=== PATIENT | male | born 1965 | race Caucasian/White ===

== ENCOUNTER 2018-10-19 20:57 | Inpatient (IN) ==
[2018-10-19] MEDS ORDERED: FUROSEMIDE 40 MG/4 ML VIAL IV STA (21:48)
--- NOTE | 2018-10-19 22:14 | XRay Report ---
XR chest 1V portable CLINICAL HISTORY: Dyspnea COMPARISON STUDY: No previous studies for comparison. FINDINGS: Note is made of moderate enlargement of the cardiac silhouette without evidence for pulmona ry edema. Abnormal opacity within the right lower hemithorax likely reflects a pleural effusion with associated airspace opacity. There may also be elevation of the right hemidiaphragm. There is no pneu mothorax. Skinfold projects over the right hemithorax. There is no left pleural effusion. IMPRESSION: 1. Right lower hemithorax opacity which suggests a small to moderate right pleural effusion with airs pace opacity which favors atelectasis although consolidation could appear similar. Possible elevation of the right hemidiaphragm. Radiographic follow-up is recommended. 2. Moderate cardiomegaly without evidence for pulmonary edema. Electronically signed by: Torin Mclaughlin M.D. 10/19/2018 10:13 PM
[2018-10-19 22:28] LABS: Basophils # (auto) 0.04 K/uL (0-0.2); Basophils % (auto) 0.6 %; Eosinophils # (auto) 0.12 K/uL (0-0.5); Eosinophils % (auto) 1.7 %; Hemoglobin 15.2 g/dL (14.0-18.0); Immature Granulocytes # (auto) 0.01 K/uL (0.00-0.02); Immature Granulocytes % (auto) 0.1 %; Lymphocytes # (auto) 1.35 K/uL (1.2-3.4); Lymphocytes % (auto) 19.3 %; Mean Corpuscular Hgb Conc 33.8 g/dL (32-36); Mean Corpuscular Volume 89.1 fL (80-100); Mean Platelet Volume 9.9 fL (7.4-10.4); Monocytes # (auto) 0.62 K/uL (0.11-0.59); Monocytes % (auto) 8.8 %; Neutrophils # (auto) 4.87 K/uL (1.4-6.5); Neutrophils % (auto) 69.5 %; Platelet Count 191 K/uL (130-400); RDW Coefficient of Variation 14.1 % (11.5-14.5); RDW Standard Deviation 45.6 fL (36.4-46.3); Red Blood Count 5.05 M/uL (4.7-6.1); White Blood Count 7.01 K/uL (4.8-10.8)
[2018-10-19 22:53] LABS: Albumin Level 2.8 gm/dl (3.4-5.0); BUN Creatinine Ratio 12.6 (10-20); Calcium 9.4 mg/dl (8.5-10.1); Creatinine Clr Calc Pharmacy 99.8 ml/min; Est GFR (African American) 74.6; Est GFR (Non-African American) 64.4; Magnesium 1.8 mg/dl (1.8-2.4); Potassium 4.3 mmol/L (3.5-5.1)
[2018-10-19 22:56] LABS: Albumin Globulin Ratio 0.7 (0.9-2); Bilirubin,Total 0.8 mg/dl (0.2-1); Globulin 3.9 gm/dl (2.5-4.0); Total Protein 6.7 gm/dl (6.4-8.2)
[2018-10-19 22:58] LABS: INR 1.3 (0.9-1.1); Partial Thromboplastin Ratio 0.9; Partial Thromboplastin Time 24.6 Seconds (21.0-31.0); Prothrombin Time 13.2 Seconds (9.0-12.0)
[2018-10-19 22:58] LABS: Appearance Urine Clear (Clear); Bilirubin Urine Negative (Negative); Blood Urine Negative (Negative); Color Urine Yellow; Glucose Urine UA Negative (Negative); Ketones Urine Negative (Negative); Leukocyte Esterase Urine Negative (Negative); Nitrite Urine Negative (Negative); Protein Urine Trace (Negative); Specific Gravity Urine 1.011 (1.000-1.030); Urobilinogen Urine Negative (Negative)
--- NOTE | 2018-10-19 22:58 | Ultrasound Report ---
BILATERAL LOWER EXTREMITY VENOUS DOPPLER CLINICAL HISTORY: Dyspnea, BLE edema COMPARISON STUDY: No previous studies for comparison. TECHNIQUE: Sonography of the deep venous system of the bilateral lower extremities was performed. Co mpression and augmentation were evaluated. FINDINGS: The bilateral common femoral, superficial femoral and popliteal veins were compressible. A ugmentation was normal. Flow was shown within the deep calf vessels. Lower extremity edema was noted. IMPRESSION: No evidence of deep venous thrombus within the bilateral lower extremities. Electronically signed by: Torin Mclaughlin M.D. 10/19/2018 10:56 PM
[2018-10-19 23:20] LABS: Bacteria Urine Negative (Negative); Epithelial Cell Urine 0-5 /lpf (0-5); RBC Urine 0-4 /hpf (0-4); WBC Urine 0-5 /hpf (0-5)
[2018-10-20] MEDS ORDERED: LABETALOL HCL IV 5 MG/ML 20ML IV STA (00:06)
--- NOTE | 2018-10-20 00:53 | Emergency Department Note ---
Entered by Toyin Lincoln acting as a scribe for History of Present Illness General Chief complaint: Respiratory Problems Stated complaint: CAN'T BREATH, FLUID OVER BAD Source: patient History of Present Illness Onset (ago): day(s) (recently) Location: chest Pain Consistency: + other (persistent) Maximum Pain Intensity: 4 Quality: + other (shortness of breath) Associated symptoms: + cough (productive) and + other (positive fluid buildup ) The patient is a 53 year old male who presents to the Emergency Room with complaints of persistent shortness of breath that began recently. The patient states that he has had a productive cough during this time. He states that he has had fluid buildup that began 3 months prior to arrival. The patient states that he has been taking 20 mg of oral Lasix. Recently his PCP increase the Lasix to 40 mg daily which has helped the fluid buildup, however the patient complains of shortness of breath that persists. Patient's states he sleeps sitting upright in a chair. He denies any fevers, vomiting or diarrhea. 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 Home Medications Home Medications Medication Instructions Recorded Confirmed Type cholecalciferol (vitamin D3) 400 unit PO DAILY 10/19/18 10/19/18 History [Vitamin D3] furosemide [Lasix] 40 mg PO DAILY 10/19/18 10/19/18 History glipizide 10 mg PO DAILY 10/19/18 10/19/18 History lisinopril 20 mg PO DAILY 10/19/18 10/19/18 History metformin 1,000 mg PO DAILY 10/19/18 10/19/18 History potassium aminobenzoate 500 mg PO DAILY 10/19/18 10/19/18 History simethicone [Gas-X Ultra-Strength] 180 mg PO DAILY PRN 10/19/18 10/19/18 History Allergies Allergy/AdvReac Type Severity Reaction Status Date / Time No Known Allergies Allergy Unverified 10/19/18 21:38 Past Med/Surg History Medical History Diabetes (Chronic) Social History Preferred Language: Ukrainian Feels Safe at Home: Yes Smoking Status: Never smoker Review of Systems See HPI for pertinent positives & negatives. and A total of 10 systems reviewed and were otherwise negative Physical Exam Vital Signs Vital Signs - 24 hr 10/19/18 21:07 10/19/18 22:27 10/19/18 23:57 Temperature 37.4 C Temperature Source Oral Sepsis Recent Fever Within 48 Hours No Sepsis New/Unexplained Change in Mental Status No Sepsis Action Taken by Nursing No Action Required Pulse Rate 114 H Pulse Rate [Right Finger] 113 H 116 H Pulse Rhythm Regular Pulse Strength Normal Respiratory Rate 24 26 H 25 H Respiratory Effort / Characteristics Non-Labored Spontaneous Non-Labored Spontaneous Respiratory Depth Normal Normal Respiratory Pattern Regular Regular Blood Pressure 132/92 Blood Pressure [Right Arm] 141/94 H 161/111 H Blood Pressure Mean 105 Blood Pressure Mean [Right Arm] 109 127 Blood Pressure Position Sitting Blood Pressure Position [Right Arm] Sitting Sitting Pulse Oximetry 96 98 95 Oxygen Delivery Method Room Air Room Air 10/20/18 00:00 10/20/18 00:20 10/20/18 00:30 Temperature Temperature Source Sepsis Recent Fever Within 48 Hours Sepsis New/Unexplained Change in Mental Status Sepsis Action Taken by Nursing Pulse Rate 113 H 110 H 110 H Pulse Rate [Right Finger] Pulse Rhythm Pulse Strength Respiratory Rate 25 H 28 H 39 H Respiratory Effort / Characteristics Respiratory Depth Respiratory Pattern Blood Pressure 153/102 H 160/100 H Blood Pressure [Right Arm] Blood Pressure Mean 119 120 Blood Pressure Mean [Right Arm] Blood Pressure Position Blood Pressure Position [Right Arm] Pulse Oximetry Oxygen Delivery Method 10/20/18 00:31 Temperature Temperature Source Sepsis Recent Fever Within 48 Hours Sepsis New/Unexplained Change in Mental Status Sepsis Action Taken by Nursing Pulse Rate 109 H Pulse Rate [Right Finger] Pulse Rhythm Pulse Strength Respiratory Rate 38 H Respiratory Effort / Characteristics Respiratory Depth Respiratory Pattern Blood Pressure 141/105 H Blood Pressure [Right Arm] Blood Pressure Mean 117 Blood Pressure Mean [Right Arm] Blood Pressure Position Blood Pressure Position [Right Arm] Pulse Oximetry Oxygen Delivery Method Vital signs reviewed. Tachycardic and hypertensive General: Chronically ill-appearing 53-year-old male, in no significant distress. Morbidly obese. HEENT: No scleral icterus, PERRLA, neck supple. Atraumatic. Cardiovascular: Tachycardic but regular, no extra sounds. Pulmonary: Clear to auscultation bilaterally, normal work of breathing. Abdomen: Soft, nontender, nondistended, positive bowel sounds. Musculoskeletal: Atraumatic. 2+ pitting edema to the bilateral lower ex tremities. Edema noted to the lower abdominal pannus and buttocks. Neurologic: Patient awake alert and oriented x 3 Skin: Warm, dry, no rash Course 2145: The patient was evaluated in room A3, and a complete history and physical examination were performed. 2358: I reevaluated the patient and updated him on the results. 0008: [facility] for further evaluation. Consultations Consultation #1: I [facility] patient for further evaluation. Time: 00:08 Administered Medications Discontinued Medications Furosemide (Lasix) 40 mg IV NOW STA Stop: 10/19/18 21:49 Last Admin: 10/19/18 22:05 Dose: 40 mg Documented by: [id number] Labetalol HCl (Normodyne) 10 mg IV NOW STA Stop: 10/20/18 00:07 Last Admin: 10/20/18 00:16 Dose: 10 mg Documented by: [id number] Cosigned by: [id number] Medical Decision Making Differential Diagnosis Differential diagnosis: Etiologies such as infections, reactive airway disease, pneumonia, pneumothorax, COPD, CHF, cardiac ischemia, pulmonary embolism, musculoskeletal, gastrointestinal, as well as others were entertained. Medical Records Attestation: I reviewed the patient's medical records. Home Medications Current Medication List: was personally reviewed by me Laboratory Data Attestation: I reviewed the patient's lab results. Result diagrams: 10/19/18 22:20 10/19/18 22:20 Lab Results 10/19/18 10/19/18 10/19/18 Range/Units 22:03 22:20 22:20 WBC 7.01 (4.8-10.8) K/uL RBC 5.05 (4.7-6.1) M/uL Hgb 15.2 (14.0-18.0) g/dL Hct 45.0 (42-52) % MCV 89.1 (80-100) fL MCH 30.1 (25-34) pg MCHC 33.8 (32-36) g/dL RDW Std Deviation 45.6 (36.4-46.3) fL RDW Coeff of [place] 14.1 (11.5-14.5) % Plt Count 191 (130-400) K/uL MPV 9.9 (7.4-10.4) fL Immature Gran % (Auto) 0.1 % Neut % (Auto) 69.5 % Lymph % (Auto) 19.3 % Parke % (Auto) 8.8 % Eos % (Auto) 1.7 % Baso % (Auto) 0.6 % Immature Gran # (Auto) 0.01 (0.00-0.02) K/uL Neut # (Auto) 4.87 (1.4-6.5) K/uL Lymph # (Auto) 1.35 (1.2-3.4) K/uL Parke # (Auto) 0.62 H (0.11-0.59) K/uL Eos # (Auto) 0.12 (0-0.5) K/uL Baso # (Auto) 0.04 (0-0.2) K/uL PT 13.2 H (9.0-12.0) Seconds INR 1.3 H (0.9-1.1) APTT 24.6 (21.0-31.0) Seconds PTT Ratio 0.9 Sodium (136-145) mmol/L Potassium (3.5-5.1) mmol/L Chloride (98-107) mmol/L Carbon Dioxide (21-32) mmol/L Anion Gap (3-11) BUN (7-18) mg/dl Creatinine (0.6-1.4) mg/dl Est Cr Clr Drug Dosing ml/min Est GFR ( Amer) Est GFR (Non-Af Amer) BUN/Creatinine Ratio (10-20) Glucose (70-99) mg/dl Calcium (8.5-10.1) mg/dl Magnesium (1.8-2.4) mg/dl Total Bilirubin (0.2-1) mg/dl AST (15-37) U/L ALT (12-78) U/L Alkaline Phosphatase (45-117) U/L Total Protein (6.4-8.2) gm/dl Albumin (3.4-5.0) gm/dl Globulin (2.5-4.0) gm/dl Albumin/Globulin Ratio (0.9-2) Urine Color Yellow Urine Appearance Clear (Clear) Urine pH 6.0 (4.5-7.5) Ur Specific [place] 1.011 (1.000-1.030) Urine Protein Trace H (Negative) Urine Glucose (UA) Negative (Negative) Urine Ketones Negative (Negative) Urine Blood Negative (Negative) Urine Nitrite Negative (Negative) Urine Bilirubin Negative (Negative) Urine Urobilinogen Negative (Negative) Ur Leukocyte Esterase Negative (Negative) Urine RBC 0-4 (0-4) /hpf Urine WBC 0-5 (0-5) /hpf Ur Epithelial Cells 0-5 (0-5) /lpf Urine Bacteria Negative (Negative) 10/19/18 Range/Units 22:20 WBC (4.8-10.8) K/uL RBC (4.7-6.1) M/uL Hgb (14.0-18.0) g/dL Hct (42-52) % MCV (80-100) fL MCH (25-34) pg MCHC (32-36) g/dL RDW Std Deviation (36.4-46.3) fL RDW Coeff of [place] (11.5-14.5) % Plt Count (130-400) K/uL MPV (7.4-10.4) fL Immature Gran % (Auto) % Neut % (Auto) % Lymph % (Auto) % Parke % (Auto) % Eos % (Auto) % Baso % (Auto) % Immature Gran # (Auto) (0.00-0.02) K/uL Neut # (Auto) (1.4-6.5) K/uL Lymph # (Auto) (1.2-3.4) K/uL Parke # (Auto) (0.11-0.59) K/uL Eos # (Auto) (0-0.5) K/uL Baso # (Auto) (0-0.2) K/uL PT (9.0-12.0) Seconds INR (0.9-1.1) APTT (21.0-31.0) Seconds PTT Ratio Sodium 138 (136-145) mmol/L Potassium 4.3 (3.5-5.1) mmol/L Chloride 104 (98-107) mmol/L Carbon Dioxide 29 (21-32) mmol/L Anion Gap 6.0 (3-11) BUN 16 (7-18) mg/dl Creatinine 1.28 (0.6-1.4) mg/dl Est Cr Clr Drug Dosing 99.8 ml/min Est GFR ( Amer) 74.6 Est GFR (Non-Af Amer) 64.4 BUN/Creatinine Ratio 12.6 (10-20) Glucose 168 H (70-99) mg/dl Calcium 9.4 (8.5-10.1) mg/dl Magnesium 1.8 (1.8-2.4) mg/dl Total Bilirubin 0.8 (0.2-1) mg/dl AST 48 H (15-37) U/L ALT 62 (12-78) U/L Alkaline Phosphatase 110 (45-117) U/L Total Protein 6.7 (6.4-8.2) gm/dl Albumin 2.8 L (3.4-5.0) gm/dl Globulin 3.9 (2.5-4.0) gm/dl Albumin/Globulin Ratio 0.7 L (0.9-2) Urine Color Urine Appearance (Clear) Urine pH (4.5-7.5) Ur Specific [place] (1.000-1.030) Urine Protein (Negative) Urine Glucose (UA) (Negative) Urine Ketones (Negative) Urine Blood (Negative) Urine Nitrite (Negative) Urine Bilirubin (Negative) Urine Urobilinogen (Negative) Ur Leukocyte Esterase (Negative) Urine RBC (0-4) /hpf Urine WBC (0-5) /hpf Ur Epithelial Cells (0-5) /lpf Urine Bacteria (Negative) Imaging Data Radiologist's Impression: Radiology results as stated below per my review and the radiologist's interpretation: XR chest 1V portable CLINICAL HISTORY: Dyspnea COMPARISON STUDY: No previous studies for comparison. FINDINGS: Note is made of moderate enlargement of the cardiac silhouette without evidence for pulmonary edema. Abnormal opacity within the right lower hemithorax likely reflects a pleural effusion with associated airspace opacity. There may also be elevation of the right hemidiaphragm. There is no pneumothorax. Skinfold projects over the right hemithorax. There is no left pleural effusion. IMPRESSION: 1. Right lower hemithorax opacity which suggests a small to moderate right pleural effusion with airspace opacity which favors atelectasis although consoli dation could appear similar. Possible elevation of the right hemidiaphragm. Radiographic follow-up is recommended. 2. Moderate cardiomegaly without evidence for pulmonary edema. Electronically signed by: Torin Mclaughlin M.D. 10/19/2018 10:13 PM BILATERAL LOWER EXTREMITY VENOUS DOPPLER CLINICAL HISTORY: Dyspnea, BLE edema COMPARISON STUDY: No previous studies for comparison. TECHNIQUE: Sonography of the deep venous system of the bilateral lower extremities was performed. Compression and augmentation were evaluated. FINDINGS: The bilateral common femoral, superficial femoral and popliteal veins were compressible. Augmentation was normal. Flow was shown within the deep calf vessels. Lower extremity edema was noted. IMPRESSION: No evidence of deep venous thrombus within the bilateral lower extremities. Electronically signed by: Torin Mclaughlin M.D. 10/19/2018 10:56 PM ECG Data Attestation: I personally reviewed and interpreted this ECG as follows: Indication: SOB/dyspnea Rate (beats per minute): 113 Rhythm: sinus tachycardia Findings: + other (QTC 485; likely previous anterior infarct) and + left axis deviation Blood Pressure Blood Pressure Findings: Elevated blood pressure Blood Pressure Disposition: further management by hospitalist MDM Narrative This patient was evaluated and appeared to be in no significant distress. IV access was obtained and laboratory work was drawn. He was placed on the playground monitor. Patient was given 40 mg of IV Lasix. Ultrasound of bilateral lower extremities was performed and is negative for DVT. Chest x-ray is significant for pleural effusion, mild cardiomegaly. I suspect the patient is suffering from a component of fluid retention related to heart failure. He was given 10 mg of IV labetalol for hypertension and tachycardia. Patient has no known cardiac abnormalities. I believe he warrants diuresis and further evaluation in-house. Dr. Tsang was consulted who will evaluate the patient for further management. Impression & Plan CHF (congestive heart failure), Hypertension Discharge Plan Visit Data Chief Complaint: Respiratory Problems Stated Complaint: CAN'T BREATH, FLUID OVER BAD ED Provider: Nancy Arreola Discharge Problem: CHF (congestive heart failure), Hypertension Patient Disposition: Being Evaluated by Hospitalist Forms Stand Alone Forms: My [employer] Prescriptions Prescriptions: No Action furosemide [Lasix] 40 mg Tablet 40 mg PO DAILY RF: 0 simethicone [Gas-X Ultra-Strength] 180 mg Capsule 180 mg PO DAILY PRN (Reason: Gastric Reflux) RF: 0 lisinopril 20 mg Tablet 20 mg PO DAILY RF: 0 glipizide 10 mg Tablet 10 mg PO DAILY RF: 0 metformin 1,000 mg Tablet 1,000 mg PO DAILY RF: 0 potassium aminobenzoate 500 mg Capsule 500 mg PO DAILY RF: 0 cholecalciferol (vitamin D3) [Vitamin D3] 400 unit Tablet 400 unit PO DAILY RF: 0 Referrals Referrals: Alyse Brady D.O. [Primary Care Provider] - Discharge Problem: CHF (congestive heart failure) Qualifiers: Heart failure type: unspecified Heart failure chronicity: acute Qualified Code(s): I50.9 - Heart failure, unspecified Hypertension Qualifiers: Hypertension type: unspecified Qualified Code(s): I10 - Essential (primary) hypertension The scribe's documentation has been prepared under my direction and personally reviewed by me in its entirety. I confirm that the note above accurately reflects all work, treatment, procedures, and medical decision making performed by me.
--- NOTE | 2018-10-20 01:43 | History & Physical Report ---
Date of Service October 20, 2018 Assessment & Plan (1) Pleural effusion: 53 yo M with DM on metformin, glipizide, chronic LE edema presenting with worsening edema, dyspnea, cough presenting with tachycardia , tachypnea, without hypoxia, neg venous doppler bilateral lower extremities, CXR with mo derate right pleural effusion with airspace opacity - Admit to Med/Surg - Pleural effusion possibly secondary to undiagnosed CHF - BNP >6000 on arrival, Echo ordered for further evaluation - Consider Cardiology consult (2) Bilateral lower extremity edema: possibly secondary to undiagnosed chf vs liver disease as patient alluded to contributing to fluid overload also involving abdomen, though LFTS unremarkable, INR is elevated without anticoagulation - CT abdomen ordered to evaluate for liver disease , possible ascites - Continue home lasix po at this time - reassess following likely thoracentesis - daily weights, ins/outs - ECHO pending as above (3) Diabetes: Held Metformin, Glipizide ISS during admission History of Present Illness Chief Complaint: Pleural effusion, LE edema Primary Care Provider: Alyse Brady 53 yo M with DM on metformin, glipizide, chronic LE edema presenting with worsening edema. Patient has been on Lasix 40 mg daily for the last 43 days for water retention according to patient. He also reports 3 weeks of worsening sob cough. He was sent for U/S liver was told he had fatty liver disease . 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 He denies chest pain, calf tenderness, palpitation, lightheadedness, dizziness. occasional n/v, fevers, chills. He has never had echo of heart or been told he had CHF. In the ED he was found to be afebrile, tachycardic, tachypneic without hypoxia, cbc unremarkable, cmp unremarkable other than low albumin. He had a neg venous doppler bilateral lower extremities, CXR with moderate right pleural effusion with airspace opacity. He received 40 mg IV Lasix and 10 mg IV Labetolol. Allergies Allergy/AdvReac Type Severity Reaction Status Date / Time No Known Allergies Allergy Unverified 10/19/18 21:38 Home Medications Home Medications Medication Instructions Recorded Confirmed Type cholecalciferol (vitamin D3) 400 unit PO DAILY 10/19/18 10/19/18 History [Vitamin D3] furosemide [Lasix] 40 mg PO DAILY 10/19/18 10/19/18 History glipizide 10 mg PO DAILY 10/19/18 10/19/18 History lisinopril 20 mg PO DAILY 10/19/18 10/19/18 History metformin 1,000 mg PO DAILY 10/19/18 10/19/18 History potassium aminobenzoate 500 mg PO DAILY 10/19/18 10/19/18 History simethicone [Gas-X Ultra-Strength] 180 mg PO DAILY PRN 10/19/18 10/19/18 History Past Med/Surg History Medical History Diabetes (Chronic) Tonsillectomy planned Surgical History History of cholecystectomy Social History Preferred Language: Maltese Communication Ability: Effective Beliefs That Will Affect Care: None Current Living Situation: Significant Other Other Information That Helps Us Care for You: No Feels Safe at Home: Yes Safety Concerns: Feels Safe At This Time Smoking Status: Never smoker Do You Dip or Chew Tobacco: Yes Second Hand Exposure: Yes Hx Alcohol Use: No Hx Substance Use: No Review of Systems Review of Systems: All systems reviewed & are unremarkable except as noted in HPI & below Physical Exam Physical Exam: GENERAL APPEARANCE: alert and cooperative, and appears to be in no acute distress. HEAD: normocephalic. EYES: PERRL, EOMI. vision is grossly intact. EARS: hearing grossly intact. NOSE: No nasal discharge. NECK: Neck supple, non-tender without lymphadenopathy CARDIAC: Normal S1 and S2. No S3, S4 or murmurs. Rhythm is regular LUNGS: basilar crackles, diminished breath sounds RIgth side ABDOMEN: Positive bowel sounds. Soft, +distended, nontender. No guarding or rebound. No masses. LOWER EXTREMITY: 2+ edema NEUROLOGICAL: CN II-XII grossly intact.moves extremities SKIN: Skin normal color, texture and turgor with no lesions or eruptions. Results & Data Vital Signs (Past 12 Hours) Vital Signs Temp Pulse Pulse Resp BP BP Pulse Ox 10/20/18 01:31 102 H 29 H 140/99 94 10/20/18 01:30 103 H 93 10/20/18 01:16 102 H 143/95 H 10/20/18 01:03 102 H 18 10/20/18 01:02 105 H 25 H 145/98 H 10/20/18 01:00 105 H 10/20/18 00:46 105 H 20 135/96 10/20/18 00:31 109 H 38 H 141/105 H 10/20/18 00:30 110 H 39 H 10/20/18 00:20 110 H 28 H 160/100 H 10/20/18 00:00 113 H 25 H 153/102 H 10/19/18 23:57 116 H 25 H 161/111 H 95 10/19/18 22:27 113 H 26 H 141/94 H 98 10/19/18 21:07 37.4 C 114 H 24 132/92 96 Code Status & VTE Plan Code Status FULL VTE Prophylaxis Plan VTE Prophylaxis will be ordered: Yes Reason for no VTE drug order: Contraindicated (pending possible thoracentesis) Supervising Physician Co-Signing Physician Notes Attending addendum: I have physically seen this patient, have supervised the medical residents activities, and agree with the H&P unless as otherwise noted. Assessment and Plan: Right pleural effusion/fluid overload- Pleural effusion not likely to respond to Lasix. Consult thoracic surgery Dr. Rey to assess for possible thoracentesis. Metabolic work-up to assess for cause including CT abdomen pelvis. ECHO results pending. Remainder orders and notations as noted.. Resident Activity Tracking Resident Involvement: Resident Care Provided Care Provided: Adult Hospital Medicine
[2018-10-20] MEDS ORDERED: GLUCOSE 40% GEL 15 GM TUBE PO PRN (02:36)
[2018-10-20] MEDS ORDERED: ACETAMINOPHEN 325 MG TAB PO PRN (02:36)
[2018-10-20] MEDS ORDERED: MAGNESIUM HYDROXIDE SUSP 30 ML UDC PO PRN (02:36)
[2018-10-20] MEDS ORDERED: ALUMINUM/MAGNESIUM SUSP 30 ML UDC PO PRN (02:36)
[2018-10-20] MEDS ORDERED: GLUCOSE 10 TABS/TUBE PO PRN (02:36)
[2018-10-20] MEDS ORDERED: CARBOHYDRATES FOR HYPOGLYCEMIA PO PRN (02:36)
[2018-10-20] MEDS ORDERED: GLUCAGON FOR INJ 1 MG VIAL SQ PRN (02:36)
[2018-10-20] MEDS ORDERED: DEXTROSE 50% 50 ML SYRINGE IV PRN (02:36)
[2018-10-20] MEDS ORDERED: ONDANSETRON INJ 2 MG/ML 2 ML VIAL IV PRN (02:36)
--- NOTE | 2018-10-20 06:44 | CT Scan Report ---
CT abd pelvis wo con CT DOSE: 1623.33 mGy.cm HISTORY: Pain. Ascites. liver eval. r/o ascites TECHNIQUE: Multiaxial CT images of the abdomen and pelvis were performed without contrast. A dose lo wering technique was utilized adhering to the principles of ALARA. COMPARISON STUDY: None. FINDINGS: Right pleural effusion. Superimposed right basilar infiltrative process. Left base is clear . Prior cholecystectomy. Kidneys negative for calcification or hydronephrosis. 4 cm left renal cyst. Se veral mesenteric nodes suggesting mild mesenteric adenitis. Bladder is midline. Mild body wall anasarca. IMPRESSION: 1. Right pleural effusion. 2. Infiltrate right base. 3. Mesenteric adenitis. 4. Nonobstructive bowel pattern. 5. Mild body wall anasarca. The above report was generated using voice recognition software. It may contain grammatical, syntax or spelling errors. Electronically signed by: Feroz Neville M.D. 10/20/2018 6:43 AM
[2018-10-20 07:22] LABS: Albumin Level 2.6 gm/dl (3.4-5.0); BUN Creatinine Ratio 11.1 (10-20); Calcium 9.1 mg/dl (8.5-10.1); Creatinine Clr Calc Pharmacy 97.1 ml/min; Est GFR (African American) 73.2; Est GFR (Non-African American) 63.2
[2018-10-20 07:24] LABS: Albumin Globulin Ratio 0.7 (0.9-2); Bilirubin,Total 0.9 mg/dl (0.2-1); Estimated Average Glucose 243 mg/dl; Globulin 3.8 gm/dl (2.5-4.0); Hemoglobin A1C 10.1 % (4.5-5.6); Total Protein 6.4 gm/dl (6.4-8.2)
[2018-10-20] MEDS ORDERED: FUROSEMIDE 40 MG TAB PO SCH (09:00)
[2018-10-20] MEDS: LISINOPRIL 20 MG TAB PO SCH (09:39)
[2018-10-20] MEDS: INSULIN ASPART 100 UNITS/ML 3 ML PEN SC SCH ×4 (09:41→21:07)
--- NOTE | 2018-10-20 10:19 | XRay Report ---
XR chest 1V portable CLINICAL HISTORY: thoracentesis postthoracentesis COMPARISON STUDY: 2018 FINDINGS: Decrease in volume of a right pleural effusion. No evidence of pneumothorax postthoracentes is. Mild stable cardiomegaly. IMPRESSION: Diminished volume of right pleural effusion postthoracentesis. No evidence for pneumotho rax. The above report was generated using voice recognition software. It may contain grammatical, syntax or spelling errors. Electronically signed by: Feroz Neville M.D. 10/20/2018 10:17 AM
[2018-10-20 10:48] LABS: LDH Pleural Fluid 91 U/L
[2018-10-20 10:51] LABS: Total Protein Pleural Fluid 2.7 g/dl
[2018-10-20 11:20] LABS: Appearance Pleural Fluid HAZY; Color Pleural Fluid STRAW; Mononuclear WBC Pleural 99.1 %; Polynuclear WBC Pleural 0.9 %; RBC Pleural Fluid (A) 4000 /uL; Source Pleural Fluid RIGHT LUNG; WBC Pleural Fluid (A) 2687 /uL
[2018-10-20] MEDS ORDERED: METOPROLOL TARTRATE 25 MG TAB PO SCH (11:45)
[2018-10-20] MEDS ORDERED: COUGH DROP (SUGAR FREE) LOZ 24 LOZ/1 BOX BUCCAL PRN (13:33)
[2018-10-20] MEDS ORDERED: FUROSEMIDE 20 MG in SYRINGE 0 ML IV SCH (16:00)
[2018-10-20] MEDS: METOPROLOL TARTRATE 25 MG TAB PO SCH (20:54)
[2018-10-20] MEDS: INSULIN GLARGINE SOLOSTAR 100 UNITS/ML 3 ML PEN SC SCH (21:06)
--- NOTE | 2018-10-20 21:16 | Hospitalist Progress Note ---
Date of Service October 20, 2018 Assessment & Plan (1) Acute systolic CHF (congestive heart failure): Presenting symptoms/signs all c/w CHF. EF 20-25% on echo. Etiology? Will need w/u. STRONG family h/o CAD. Likely will need cath to r/o ischemic cardiomyopathy as cause of severe CHF. Consider ferritin, etc to r/o other causes. Cardiology consult requested. Start metoprolol 25mg BID - will ultimately need succinate. Continue QUETA. Continue diuresis. Place on lasix 40mg IV qam. I will transfer patient to the tele unit -- high risk of arrhythmia due to low EF. Also r/o a.fib etc that could have led to his severe CHF. Present on Admission?: Yes (2) Pleural effusion: appreciate Dr Rey's consult. s/p thoracentesis today on right. 1500cc of fluid removed. studies c/w transudative effusion likely from CHF. 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 titrate oral meds at d/c needs weight loss and lifestyle changes (5) Morbid obesity with BMI of 40.0-44.9, adult: BMI 43 needs lifestyle changes (6) Fatty liver: I received the pt's u/s report from his PCP's office fatty liver on that u/s no signs of cirrhosis I do not believe his volume overloaded state is from liver disease but certainly at high risk of HOLMAN during his lifetime if he does not enact lifestyle changes (7) Tobacco use: financial health counselor to quit (8) DVT prophylaxis: lovenox daily I reviewed echo results with pt, his mother, and his daughter reviewed plan of care (meds, cards consult, transfer to tele unit, etc) Subjective patient feels much better s/p thoracentesis on right and lasix overnight can take bigger breaths less dyspnea patient denies any recent chest pain he had gained about 30-40 pounds of fluid weight; lost much of this after PCP started oral lasix baseline weight about 300 pounds father had 4-vessel CABG in his 40s Mat GF had CABG as well family reports severe snoring patient does NOT drink etoh had RUQ u/s as outpatient recently -- I got those results -- fatty liver but no signs of cirrhosis Review of Systems Constitutional: + weight gain Respiratory: + cough, + dyspnea and + dyspnea on exertion; no sputum production and no wheezing Cardiovascular: + edema; no chest pain Gastrointestinal: + bloating Physical Exam Constitutional: + morbidly obese; no acute distress and no altered mental status Neck: trachea midline, no thyromegaly Respiratory: Auscultation: + diminished lung sounds (bases) and + crackles (bases) Cardiovascular: Rate/Rhythm: regular rate and regular rhythm Heart Sounds: normal S1 and normal S2; no murmur Vessels: + JVD, posterior tibial pulses present and dorsalis pedis pulses present Extremities: + edema (2+ b/l) Gastrointestinal (Abdomen): Inspection/Auscultation: + abdomen distended (probable ascites) Percussion/Palpation: + hepatomegaly; no splenomegaly Psychiatric: A+Ox3, euthymic affect Results & Data Vital Signs (Past 12 Hours) Vital Signs Temp Pulse Pulse Resp BP Pulse Ox 10/20/18 19:21 103 H 10/20/18 19:08 37.0 C 105 H 17 137/82 96 10/20/18 17:51 37.1 C 103 H 21 155/91 H 96 10/20/18 15:27 37.7 C H 110 H 20 131/87 93 Laboratory Results Laboratory Results - last 24 hr 10/19/18 10/19/18 10/19/18 22:03 22:20 22:20 WBC 7.01 RBC 5.05 Hgb 15.2 Hct 45.0 MCV 89.1 MCH 30.1 MCHC 33.8 RDW Std Deviation 45.6 RDW Coeff of [place] 14.1 Plt Count 191 MPV 9.9 Immature Gran % (Auto) 0.1 Neut % (Auto) 69.5 Lymph % (Auto) 19.3 [place] % (Auto) 8.8 Eos % (Auto) 1.7 Baso % (Auto) 0.6 Immature Gran # (Auto) 0.01 Neut # (Auto) 4.87 Lymph # (Auto) 1.35 [place] # (Auto) 0.62 H Eos # (Auto) 0.12 Baso # (Auto) 0.04 PT 13.2 H INR 1.3 H APTT 24.6 PTT Ratio 0.9 Sodium Potassium Chloride Carbon Dioxide Anion Gap BUN Creatinine Est Cr Clr Drug Dosing Est GFR ( Amer) Est GFR (Non-Af Amer) BUN/Creatinine Ratio Glucose POC Glucose Estimat Average Glucose Hemoglobin A1c Calcium Magnesium Total Bilirubin AST ALT Alkaline Phosphatase NT-Pro-B Natriuret Pep Total Protein Albumin Globulin Albumin/Globulin Ratio Urine Color Yellow Urine Appearance Clear Urine pH 6.0 Ur Specific [place] 1.011 Urine Protein Trace H Urine Glucose (UA) Negative Urine Ketones Negative Urine Blood Negative Urine Nitrite Negative Urine Bilirubin Negative Urine Urobilinogen Negative Ur Leukocyte Esterase Negative Urine RBC 0-4 Urine WBC 0-5 Ur Epithelial Cells 0-5 Urine Bacteria Negative Pleural Fluid Source Pleural Color Pleural Appearance Pleural WBC Pleural RBC Pleural Polynuclear % Pleural Mononuclear % Pleural Total Protein Pleural LDH Pleural Glucose Pleural Amylase 10/19/18 10/20/18 10/20/18 22:20 02:30 06:13 WBC RBC Hgb Hct MCV MCH MCHC RDW Std Deviation RDW Coeff of [place] Plt Count MPV Immature Gran % (Auto) Neut % (Auto) Lymph % (Auto) [place] % (Auto) Eos % (Auto) Baso % (Auto) Immature Gran # (Auto) Neut # (Auto) Lymph # (Auto) [place] # (Auto) Eos # (Auto) Baso # (Auto) PT INR APTT PTT Ratio Sodium 138 138 Potassium 4.3 4.0 Chloride 104 102 Carbon Dioxide 29 32 Anion Gap 6.0 4.0 BUN 16 14 Creatinine 1.28 1.30 Est Cr Clr Drug Dosing 99.8 97.1 Est GFR ( Amer) 74.6 73.2 Est GFR (Non-Af Amer) 64.4 63.2 BUN/Creatinine Ratio 12.6 11.1 Glucose 168 H 173 H POC Glucose 131 H Estimat Average Glucose Hemoglobin A1c Calcium 9.4 9.1 Magnesium 1.8 Total Bilirubin 0.8 0.9 AST 48 H 34 ALT 62 52 Alkaline Phosphatase 110 106 NT-Pro-B Natriuret Pep 6154 H Total Protein 6.7 6.4 Albumin 2.8 L 2.6 L Globulin 3.9 3.8 Albumin/Globulin Ratio 0.7 L 0.7 L Urine Color Urine Appearance Urine pH Ur Specific [place] Urine Protein Urine Glucose (UA) Urine Ketones Urine Blood Urine Nitrite Urine Bilirubin Urine Urobilinogen Ur Leukocyte Esterase Urine RBC Urine WBC Ur Epithelial Cells Urine Bacteria Pleural Fluid Source Pleural Color Pleural Appearance Pleural WBC Pleural RBC Pleural Polynuclear % Pleural Mononuclear % Pleural Total Protein Pleural LDH Pleural Glucose Pleural Amylase 10/20/18 10/20/18 10/20/18 06:13 08:16 08:48 WBC RBC Hgb Hct MCV MCH MCHC RDW Std Deviation RDW Coeff of [place] Plt Count MPV Immature Gran % (Auto) Neut % (Auto) Lymph % (Auto) [place] % (Auto) Eos % (Auto) Baso % (Auto) Immature Gran # (Auto) Neut # (Auto) Lymph # (Auto) [place] # (Auto) Eos # (Auto) Baso # (Auto) PT INR APTT PTT Ratio Sodium Potassium Chloride Carbon Dioxide Anion Gap BUN Creatinine Est Cr Clr Drug Dosing Est GFR ( Amer) Est GFR (Non-Af Amer) BUN/Creatinine Ratio Glucose POC Glucose 153 H Estimat Average Glucose 243 Hemoglobin A1c 10.1 H Calcium Magnesium Total Bilirubin AST ALT Alkaline Phosphatase NT-Pro-B Natriuret Pep Total Protein Albumin Globulin Albumin/Globulin Ratio Urine Color Urine Appearance Urine pH Ur Specific [place] Urine Protein Urine Glucose (UA) Urine Ketones Urine Blood Urine Nitrite Urine Bilirubin Urine Urobilinogen Ur Leukocyte Esterase Urine RBC Urine WBC Ur Epithelial Cells Urine Bacteria Pleural Fluid Source RIGHT LUNG Pleural Color STRAW Pleural Appearance HAZY Pleural WBC 2687 Pleural RBC 4000 Pleural Polynuclear % 0.9 Pleural Mononuclear % 99.1 Pleural Total Protein Pleural LDH 91 Pleural Glucose Pleural Amylase 10/20/18 10/20/18 10/20/18 08:48 12:09 18:31 WBC RBC Hgb Hct MCV MCH MCHC RDW Std Deviation RDW Coeff of [place] Plt Count MPV Immature Gran % (Auto) Neut % (Auto) Lymph % (Auto) [place] % (Auto) Eos % (Auto) Baso % (Auto) Immature Gran # (Auto) Neut # (Auto) Lymph # (Auto) [place] # (Auto) Eos # (Auto) Baso # (Auto) PT INR APTT PTT Ratio Sodium Potassium Chloride Carbon Dioxide Anion Gap BUN Creatinine Est Cr Clr Drug Dosing Est GFR ( Amer) Est GFR (Non-Af Amer) BUN/Creatinine Ratio Glucose POC Glucose 169 H 180 H Estimat Average Glucose Hemoglobin A1c Calcium Magnesium Total Bilirubin AST ALT Alkaline Phosphatase NT-Pro-B Natriuret Pep Total Protein Albumin Globulin Albumin/Globulin Ratio Urine Color Urine Appearance Urine pH Ur Specific [place] Urine Protein Urine Glucose (UA) Urine Ketones Urine Blood Urine Nitrite Urine Bilirubin Urine Urobilinogen Ur Leukocyte Esterase Urine RBC Urine WBC Ur Epithelial Cells Urine Bacteria Pleural Fluid Source Pleural Color Pleural Appearance Pleural WBC Pleural RBC Pleural Polynuclear % Pleural Mononuclear % Pleural Total Protein 2.7 Pleural LDH Pleural Glucose 185 Pleural Amylase 13 10/20/18 20:18 WBC RBC Hgb Hct MCV MCH MCHC RDW Std Deviation RDW Coeff of [place] Plt Count MPV Immature Gran % (Auto) Neut % (Auto) Lymph % (Auto) [place] % (Auto) Eos % (Auto) Baso % (Auto) Immature Gran # (Auto) Neut # (Auto) Lymph # (Auto) [place] # (Auto) Eos # (Auto) Baso # (Auto) PT INR APTT PTT Ratio Sodium Potassium Chloride Carbon Dioxide Anion Gap BUN Creatinine Est Cr Clr Drug Dosing Est GFR ( Amer) Est GFR (Non-Af Amer) BUN/Creatinine Ratio Glucose POC Glucose 147 H Estimat Average Glucose Hemoglobin A1c Calcium Magnesium Total Bilirubin AST ALT Alkaline Phosphatase NT-Pro-B Natriuret Pep Total Protein Albumin Globulin Albumin/Globulin Ratio Urine Color Urine Appearance Urine pH Ur Specific [place] Urine Protein Urine Glucose (UA) Urine Ketones Urine Blood Urine Nitrite Urine Bilirubin Urine Urobilinogen Ur Leukocyte Esterase Urine RBC Urine WBC Ur Epithelial Cells Urine Bacteria Pleural Fluid Source Pleural Color Pleural Appearance Pleural WBC Pleural RBC Pleural Polynuclear % Pleural Mononuclear % Pleural Total Protein Pleural LDH Pleural Glucose Pleural Amylase (1) Hypertension Hypertension type: unspecified Qualified Code(s): I10 - Essential (primary) hypertension (2) Diabetes Diabetes mellitus type: type 2 Diabetes mellitus rn long term care insulin use: without intermediate use Diabetes mellitus complication status: without complication Qualified Code(s): E11.9 - Type 2 diabetes mellitus without complications
--- NOTE | 2018-10-20 23:59 | Operative Report ---
DATE OF OPERATION: 10/20/2018 PREOPERATIVE DIAGNOSIS: Right pleural effusion. POSTOPERATIVE DIAGNOSIS: Right pleural effusion. PROCEDURE: Right thoracentesis under ultrasound guidance. SURGEON: Neo Rey MD PAYROLL SECRETARY: SONIA Snell ANESTHESIA: Local. SPECIFICS OF PROCEDURE: The patient in a seated position. Using an ultrasound, I evaluated both pleural cavities and saw really no evidence of fluid on the left, but he did have significant amount of fluid on the right. After appropriate timeout had been called and his consent had been obtained, he was prepped and draped in usual sterile fashion. We had marked the skin with an indelible ink where the best window was which was a bit lateral in about the eighth interspace. A 25-gauge needle 1% Xylocaine was used to raise a skin wheal. A larger needle was used to anesthetize the deeper tissues, intercostal muscles and pleura. We got free flowing yellowish fluid back and I placed the guidewire to the needle and the needle was then removed. A triple lumen catheter was slid into 17 cm and the guidewire removed and 1500 mL of a serous yellow fluid was drained. He had some reexpansion coughing, but did quite well. We removed this with no bleeding from the site. Antimicrobial dressing was placed. Chest x-ray showed almost complete resolution of this fluid and the patient felt much better. We will send this off to the lab for analysis. I attest to the content of the Intraoperative Record and any orders documented therein. Any exception s are noted below.
--- NOTE | 2018-10-21 00:07 | Consultation Report ---
DATE OF CONSULTATION: 10/20/2018 REASON FOR CONSULTATION: Right pleural effusion. HISTORY OF PRESENT ILLNESS: This is a 53-year-old obese male who has had diabetes for the last 3 years or so, who presents with lower extremity edema and shortness of breath and was found to have a moderate sized right pleural effusion. He has been tachycardic and tachypneic. I was asked to see him for a therapeutic and diagnostic thoracentesis. 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 He never smoked cigarettes, but he does chew tobacco. He has a fairly recent onset of diabetes within the last 3 years according to his history. He has had "fluid retention" and had an ultrasound and was told he had "a fatty liver." He was also found to have a low albumin, but otherwise the swelling and dyspnea were his biggest complaints. He quit drinking 4 years ago. PAST MEDICAL HISTORY: 1. Obesity. 2. Adult onset diabetes mellitus. 3. Hyperlipidemia. 4. Hypertension. PAST SURGICAL HISTORY: Cholecystectomy. SOCIAL HISTORY: The patient is but did quit drinking a few years ago. 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 He lives alone in [place]. He is normally followed by Dr. Brady. FAMILY MEDICAL HISTORY: Noncontributory. REVIEW OF SYSTEMS: The patient states he has gained some weight in the last 3 months attributed to "water." He denies a productive cough or fevers, but stated he did have an upper respiratory infection in May or June and never really got over it. He has bilateral lower extremity edema, but his ultrasound was negative for deep vein thrombosis and his brain natriuretic peptide was over 6000. He also has an elevated INR without anticoagulation. He denies chest pain or palpitations. He complains of lower extremity edema, but has no wound breakdown. He has no joint effusions. He denies any visual or auditory symptoms. He has had no neurologic events. PHYSICAL EXAMINATION: GENERAL: He is a 5 feet 11-inch, 300-pound male who is awake and alert. HEENT: Extraocular movements are intact. Sclerae are anicteric. Tongue is midline. He has no nasolabial flattening. His teeth are intact although he is missing a few. Tongue is midline. NECK: Thick, but supple. I detect no neck vein distention or hepatojugular reflux. He has no lymphadenopathy. LUNGS: He has decreased breath sounds in the right, but no wheezing. HEART: He has regular rate and rhythm of his heart. ABDOMEN: Obese, soft and nontender. I really do not detect any ascites. EXTREMITIES: Lower extremities were inspected. He has 2+ edema, but he does have palpable posterior tibialis pulses. He has no wound breakdown. He has no joint effusions. NEUROLOGIC: He is awake, alert and oriented. He has no focal deficits and no asterixis. DATA: He does have a homogenous effusion in the right, which is compressing his right lower lobe on the CT scan. ASSESSMENT AND PLAN: Unilateral pleural effusion in a patient who has signs and symptoms of probable congestive heart failure or cirrhosis. We will perform a therapeutic and diagnostic thoracentesis.
[2018-10-21 06:34] LABS: Albumin Level 2.5 gm/dl (3.4-5.0); BUN Creatinine Ratio 15.2 (10-20); Calcium 9.3 mg/dl (8.5-10.1); Creatinine Clr Calc Pharmacy 105.9 ml/min; Est GFR (African American) 82.3; Potassium 3.8 mmol/L (3.5-5.1)
[2018-10-21 06:43] LABS: Albumin Globulin Ratio 0.7 (0.9-2); Bilirubin,Total 0.6 mg/dl (0.2-1); Globulin 3.5 gm/dl (2.5-4.0)
--- NOTE | 2018-10-21 07:35 | XRay Report ---
XR chest 1V portable CLINICAL HISTORY: effusion COMPARISON STUDY: Chest radiograph October 20, 2018. FINDINGS: Small right pleural effusion with right basilar opacity is noted. There is no evidence for pulmonary edema. Cardiomegaly is unchanged. There is no pneumothorax. IMPRESSION: 1. Small right pleural effusion with right basilar opacity. No pneumothorax. 2. Cardiomegaly without evidence for pulmonary edema. Electronically signed by: Torin Mclaughlin M.D. 10/21/2018 7:34 AM
[2018-10-21] MEDS: INSULIN ASPART 100 UNITS/ML 3 ML PEN SC SCH ×4 (07:36→20:37)
[2018-10-21] MEDS: HEPARIN SOD 5,000 UNIT/0.5 ML VIAL SQ SCH ×3 (07:36→20:40)
[2018-10-21] MEDS ORDERED: FUROSEMIDE 40 MG in SYRINGE 0 ML IV SCH (09:00)
[2018-10-21] MEDS: POTASSIUM CHLORIDE 20 MEQ TABCR PO SCH ×2 (09:07→20:39)
[2018-10-21] MEDS: METOPROLOL TARTRATE 25 MG TAB PO SCH (09:07)
[2018-10-21] MEDS: LISINOPRIL 20 MG TAB PO SCH (09:08)
[2018-10-21] MEDS: MAGNESIUM OXIDE 400 MG TAB PO SCH ×2 (09:08→20:40)
--- NOTE | 2018-10-21 10:23 | Cardiology Consultation ---
Date of Consultation October 21, 2018 Assessment & Plan (1) Acute systolic CHF (congestive heart failure): He presents with gradual onset of symptoms of congestive heart failure over the past 3 months or so. They became quite progressive and he presented with significant fluid overload and evaluation has demonstrated left ventricular dysfunction. Almost certainly his fluid retention is on the basis of his cardiomyopathy. He has improved with diuresis and I would recommend continued diuresis. (2) Cardiomyopathy: He has a cardiomyopathy, his symptoms have only been present for about 3 months although possibly the cardiomyopathy predated that. There is no clear cause identified. It could be idiopathic based on the global nature and the lack of other symptoms such as chest pain, etc. but is also possible he has ischemic heart disease since he is also diabetic and has other risk factors. We will need to try to determine a cause although it is likely that we will not find a specific cause. I will draw some blood tests, in addition I will plan on an ischemic evaluation, possibly catheterization Tuesday depending how diuresis goes. I discussed all this with him and he is in agreement. He is receiving intravenous Lasix and he is on lisinopril, he is on metoprolol tartrate and I would like to change that to carvedilol. We can consider changing his lisinopril to Entresto but I have not done that at the moment. Overall he seems to be on a good regimen for his left ventricular dysfunction but will need medical titration, probably has an outpatient. History of Present Illness Reason for Consultation: CHF, cardiomyopathy Attending Physician: Valentina Harrison MD History of Present Illness This is a very pleasant 54-year-old gentleman with a history of diabetes mellitus, hyperlipidemia, hypertension, and but without known heart disease who presented with symptoms of worsening edema, dyspnea and tachycardia. He tells me that ever since July of this year he has been struggling with edema, it has been progressively worse and over the last week or so he has had a lot of difficulty with what sounds like orthopnea and PND. 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 He denies lightheadedness, dizziness or palpitations, he has had no presyncope or syncope. On presentation he was tachycardic, on x-ray he had a right pleural effusion which was tapped and he feels somewhat better. He has also been diuresed and he notes that his legs look better now than they did when he came in. He slept better last night than before he came in. He continues to have no cardiovascular symptoms. I do not believe he has had cardiac testing in the past and is never been told that he had trouble with his heart function. Allergies Allergy/AdvReac Type Severity Reaction Status Date / Time No Known Allergies Allergy Unverified 10/19/18 21:38 Home Medications Home Medications Medication Instructions Recorded Confirmed Type cholecalciferol (vitamin D3) 400 unit PO DAILY 10/19/18 10/19/18 History [Vitamin D3] furosemide [Lasix] 40 mg PO DAILY 10/19/18 10/19/18 History glipizide 10 mg PO DAILY 10/19/18 10/19/18 History lisinopril 20 mg PO DAILY 10/19/18 10/19/18 History metformin 1,000 mg PO DAILY 10/19/18 10/19/18 History potassium aminobenzoate 500 mg PO DAILY 10/19/18 10/19/18 History simethicone [Gas-X Ultra-Strength] 180 mg PO DAILY PRN 10/19/18 10/19/18 History Patient History Medical History Diabetes (Chronic) Tonsillectomy planned Surgical History History of cholecystectomy Social History Preferred Language: Italian Communication Ability: Effective Beliefs That Will Affect Care: None Current Living Situation: Significant Other Other Information That Helps Us Care for You: No Feels Safe at Home: Yes Safety Concerns: Feels Safe At This Time Smoking Status: Never smoker Do You Dip or Chew Tobacco: Yes Second Hand Exposure: Yes Hx Alcohol Use: No Hx Substance Use: No Review of Systems Review of Systems: All systems reviewed & are unremarkable except as noted in HPI & below Physical Exam Physical Exam: Constitutional: Alert, cooperative and in no distress. He is obese. HEENT: Unremarkable Neck: Jugular venous distention is hard to assess, carotid pulses are normal and equal bilaterally without bruits. Pulmonary: Clear to auscultation bilaterally. Cardiac: Regular somewhat rapid rhythm with no murmur, gallop or rub. Abdomen: Soft, nontender with normal bowel sounds. Extremities: +2 bilateral pretibial edema. Distal pulses intact. Neurologic: No focal findings. Gait is steady. Skin: No rash, ecchymoses or petechiae. Results & Data Vital Signs (Past 12 Hours) Vital Signs Temp Pulse Pulse Resp BP BP Pulse Ox 10/21/18 08:00 100 H 10/21/18 07:10 37.1 C 96 H 20 136/93 96 10/21/18 03:46 37.1 C 102 H 19 127/80 93 10/20/18 22:57 37.4 C 104 H 18 134/90 92 Diagnostic Findings Electrocardiogram: On admission he was in sinus tachycardia, left anterior fascicular block is present but without acute changes An echocardiogram done October 20, 2018 shows a borderline dilated left ventricle with severe left ventricular dysfunction in a global manner with ejection fraction of 20 to 25%, and elevated right atrial pressure. Admission chest x-ray: Right pleural effusion Chest x-ray this morning: Small right pleural effusion but improved following thoracentesis
--- NOTE | 2018-10-21 11:09 | Surgery Progress Note ---
Date of Service October 21, 2018 Assessment & Plan (1) Pleural effusion: -pt. is s/p thoracentesis on right side on 10/20/18 -cultures are thus far (-) and no organisms noted on gram stain -cytology is pending -echo results noted (EF 25%) -effusion is most likely from CHF -CXR this am does not show significant reaccumulation of fluid -continue management of underlying CHF by primary service Subjective Pt. notes his breathing feels markedly better since thoracentesis yesterday. Physical Exam Respiratory: slight decrease of BS at right bases, otherwise clear Results & Data Vital Signs (Past 12 Hours) Vital Signs Temp Pulse Pulse Resp BP Pulse Ox 10/21/18 08:00 100 H 10/21/18 07:10 37.1 C 96 H 20 136/93 96 10/21/18 03:46 37.1 C 102 H 19 127/80 93
[2018-10-21 12:02] LABS: Iron 32 mcg/dl (35-175)
[2018-10-21] MEDS: FUROSEMIDE 40 MG in SYRINGE 0 ML IV SCH (17:39)
[2018-10-21] MEDS: INSULIN GLARGINE SOLOSTAR 100 UNITS/ML 3 ML PEN SC SCH (20:38)
[2018-10-21] MEDS: CARVEDILOL 6.25 MG TAB PO SCH (20:40)
--- NOTE | 2018-10-21 21:04 | Hospitalist Progress Note ---
Date of Service October 21, 2018 Assessment & Plan (1) Acute systolic CHF (congestive heart failure): Presenting symptoms/signs all c/w CHF. Has been having progressively worsening dyspnea and cough for several months now. No history of any chest pain at rest or with exertion. He does have a strong family history of CAD, as well as severely uncontrolled diabetes, hypertension as risk factors for coronary artery disease EF 20-25% on echo. Etiology unclear, could be ischemic versus viral versus [id number] in progress Clinically he is much improved with diuresis and removal of pleural effusion with thoracentesis. Cardiology consult appreciated -Converted to carvedilol today 6.25 mg p.o. twice daily and will titrate up as needed -Continue lisinopril 20 mg daily -Continue diuresis and increase IV Lasix 40 mg to twice daily -Continue strict I's and O's, daily weights, low-sodium diet-counseled on all of this today -Plan is for cardiac cath to r/o ischemic cardiomyopathy as cause of severe CHF- scheduled for Tuesday (2) Pleural effusion: appreciate Dr Rey's consult. s/p thoracentesis on 10/20 on right. 1500cc of fluid removed. studies c/w transudative effusion likely from CHF. 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 regimen-he was happy about this -Counseled on weight loss, low carbohydrate diet, increased exercise when able to -Continue basal bolus regimen of insulin for now (5) Tobacco use: Chews tobacco -Has been counseled to quit (6) Fatty liver: Had outpatient liver ultrasound that showed fatty liver, mild elevation of AST on admission which is now resolved no signs of cirrhosis I do not believe his volume overloaded state is from liver disease but certainly at high risk of HOLMAN during his lifetime if he does not enact lifestyle changes (7) Morbid obesity with BMI of 40.0-44.9, adult: BMI 43 needs lifestyle changes, weight loss-discussed with patient (8) Hypertension: Continue lisinopril, carvedilol (9) DVT prophylaxis: lovenox SQ-will need to be held prior to cardiac catheterization Disposition-remain on telemetry, plan for cardiac catheterization on Tuesday, needs continued IV diuresis Subjective Patient reports feeling significantly improved since his thoracentesis. He has been ambulating around the halls without any shortness of breath. He has been able to lie flat again and sleep better. He still reports a cough this been going on for several months but is nonproductive. He denies any chest pain at any point. He really wants to take a shower. 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 Patient reports his leg swelling is may be a little bit better in the right leg but about the same on the left leg. He is making plenty of urine. Multiple family members are present at the bedside. His daughter reports that he is traditionally noncompliant with going to the doctor. Patient reports he checks his blood sugar about 2 or 3 times per week and that it is "always fine." We discussed his very elevated hemoglobin A1c and it did not seem concerning to him. Telemetry with normal sinus rhythm and sinus tachycardia to the low 100s Review of Systems Review of Systems: All systems reviewed & are unremarkable except as noted in HPI & below Physical Exam Constitutional: WD/WN, vitals as above + obese Eyes: PERRL, conjunctivae normal, anicteric sclerae ENMT: external ear and nose normal, oropharynx normal Neck: trachea midline, no thyromegaly Respiratory: normal respiratory effort Auscultation: + diminished lung sounds (At the right base); no crackles, no rhonchi and no wheezes Cardiovascular: Rate/Rhythm: regular rate and regular rhythm Heart Sounds: no murmur Vessels: no JVD (But difficult to tell due to obese neck) Extremities: + edema (2-3+ pitting edema in the legs to the knees bilaterally left greater than right) Gastrointestinal (Abdomen): normal bowel sounds, soft, nontender, no hepatosplenomegaly (Protuberant, obese abdomen) Musculoskeletal: Extremities: no cyanosis and no clubbing Skin: no rashes, warm and dry Neurologic: moves all extremities and awake; no focal motor deficits Psychiatric: A+Ox3, euthymic affect Results & Data Vital Signs (Past 12 Hours) Vital Signs Temp Pulse Pulse Resp BP BP Pulse Ox 10/21/18 19:35 37.3 C 103 H 18 123/83 94 10/21/18 16:00 102 H 10/21/18 15:17 36.8 C 113 H 20 135/92 97 10/21/18 12:00 96 H 10/21/18 11:41 36.6 C 104 H 20 133/88 95 Laboratory Results 10/21/18 10/21/18 10/21/18 Range/Units 20:31 16:11 11:24 Sodium (136-145) mmol/L Potassium (3.5-5.1) mmol/L Chloride (98-107) mmol/L Carbon Dioxide (21-32) mmol/L Anion Gap (3-11) BUN (7-18) mg/dl Creatinine (0.6-1.4) mg/dl Est Cr Clr Drug Dosing ml/min Est GFR ( Amer) Est GFR (Non-Af Amer) BUN/Creatinine Ratio (10-20) Glucose (70-99) mg/dl POC Glucose 172 H 205 H 220 H (70-99) Calcium (8.5-10.1) mg/dl Iron (35-175) mcg/dl TIBC (250-450) mcg/dl Total Bilirubin (0.2-1) mg/dl AST (15-37) U/L ALT (12-78) U/L Alkaline Phosphatase (45-117) U/L Total Protein (6.4-8.2) gm/dl Albumin (3.4-5.0) gm/dl Globulin (2.5-4.0) gm/dl Albumin/Globulin Ratio (0.9-2) Angiotensin Convert Enz TSH (0.300-4.500) uIu/ml Urine Immunofixation 10/21/18 10/21/18 10/21/18 Range/Units 11:15 11:13 11:13 Sodium (136-145) mmol/L Potassium (3.5-5.1) mmol/L Chloride (98-107) mmol/L Carbon Dioxide (21-32) mmol/L Anion Gap (3-11) BUN (7-18) mg/dl Creatinine (0.6-1.4) mg/dl Est Cr Clr Drug Dosing ml/min Est GFR ( Amer) Est GFR (Non-Af Amer) BUN/Creatinine Ratio (10-20) Glucose (70-99) mg/dl POC Glucose (70-99) Calcium (8.5-10.1) mg/dl Iron 32 L (35-175) mcg/dl TIBC 230 L (250-450) mcg/dl Total Bilirubin (0.2-1) mg/dl AST (15-37) U/L ALT (12-78) U/L Alkaline Phosphatase (45-117) U/L Total Protein (6.4-8.2) gm/dl Albumin (3.4-5.0) gm/dl Globulin (2.5-4.0) gm/dl Albumin/Globulin Ratio (0.9-2) Angiotensin Convert Enz Pending TSH (0.300-4.500) uIu/ml Urine Immunofixation Pending 10/21/18 10/21/18 10/21/18 Range/Units 07:01 05:26 05:26 Sodium 139 (136-145) mmol/L Potassium 3.8 (3.5-5.1) mmol/L Chloride 102 (98-107) mmol/L Carbon Dioxide 31 (21-32) mmol/L Anion Gap 6.0 (3-11) BUN 18 (7-18) mg/dl Creatinine 1.18 (0.6-1.4) mg/dl Est Cr Clr Drug Dosing 105.9 ml/min Est GFR ( Amer) 82.3 Est GFR (Non-Af Amer) 71.0 BUN/Creatinine Ratio 15.2 (10-20) Glucose 146 H (70-99) mg/dl POC Glucose 152 H (70-99) Calcium 9.3 (8.5-10.1) mg/dl Iron (35-175) mcg/dl TIBC (250-450) mcg/dl Total Bilirubin 0.6 (0.2-1) mg/dl AST 32 (15-37) U/L ALT 47 (12-78) U/L Alkaline Phosphatase 99 (45-117) U/L Total Protein 6.0 L (6.4-8.2) gm/dl Albumin 2.5 L (3.4-5.0) gm/dl Globulin 3.5 (2.5-4.0) gm/dl Albumin/Globulin Ratio 0.7 L (0.9-2) Angiotensin Convert Enz TSH 0.658 (0.300-4.500) uIu/ml Urine Immunofixation Diagnostic Findings Chest x-ray image personally reviewed by me this morning and agree with the following report: XR chest 1V portable CLINICAL HISTORY: effusion COMPARISON STUDY: Chest radiograph October 20, 2018. FINDINGS: Small right pleural effusion with right basilar opacity is noted. There is no evidence for pulmonary edema. Cardiomegaly is unchanged. There is no pneumothorax. IMPRESSION: 1. Small right pleural effusion with right basilar opacity. No pneumothorax. 2. Cardiomegaly without evidence for pulmonary edema. (1) Diabetes Diabetes mellitus complication status: without complication Diabetes mellitus fci insulin use: without fci use Diabetes mellitus type: type 2 Qualified Code(s): E11.9 - Type 2 diabetes mellitus without complications (2) Hypertension Hypertension type: unspecified Qualified Code(s): I10 - Essential (primary) hypertension
[2018-10-22] MEDS: HEPARIN SOD 5,000 UNIT/0.5 ML VIAL SQ SCH ×2 (05:44→14:24)
[2018-10-22 06:15] LABS: Albumin Level 2.5 gm/dl (3.4-5.0); BUN Creatinine Ratio 14.6 (10-20); Calcium 9.1 mg/dl (8.5-10.1); Est GFR (African American) 76.8; Est GFR (Non-African American) 66.2; Magnesium 1.9 mg/dl (1.8-2.4); Potassium 3.8 mmol/L (3.5-5.1)
[2018-10-22 06:19] LABS: Albumin Globulin Ratio 0.8 (0.9-2); Bilirubin,Total 0.5 mg/dl (0.2-1); Globulin 3.3 gm/dl (2.5-4.0); Total Protein 5.8 gm/dl (6.4-8.2)
[2018-10-22] MEDS: FUROSEMIDE 40 MG in SYRINGE 0 ML IV SCH ×2 (08:30→17:43)
[2018-10-22] MEDS: MAGNESIUM OXIDE 400 MG TAB PO SCH ×2 (08:30→20:34)
[2018-10-22] MEDS: CARVEDILOL 6.25 MG TAB PO SCH ×2 (08:30→20:34)
[2018-10-22] MEDS: LISINOPRIL 20 MG TAB PO SCH ×2 (08:30→10:00)
[2018-10-22] MEDS: POTASSIUM CHLORIDE 20 MEQ TABCR PO SCH ×2 (08:30→20:34)
[2018-10-22] MEDS: INSULIN ASPART 100 UNITS/ML 3 ML PEN SC SCH ×4 (08:31→20:35)
--- NOTE | 2018-10-22 10:05 | Cardiology Progress Note ---
Date of Service October 22, 2018 Assessment & Plan (1) Acute systolic CHF (congestive heart failure): He presents with gradual onset of symptoms of congestive heart failure over the past 3 months or so. This became quite progressive and he presented with significant fluid overload and evaluation has demonstrated left ventricular dysfunction. Almost certainly his fluid retention is on the basis of his cardiomyopathy. He has improved with diuresis but still has significant fluid overload and I would recommend continued diuresis. (2) Cardiomyopathy: He has a cardiomyopathy, his symptoms have only been present for about 3 months although possibly the cardiomyopathy predated that. There is no clear cause identified. It could be idiopathic based on the global nature and the lack of other symptoms such as chest pain, etc. but it is also possible he has ischemic heart disease since he is also diabetic and has other risk factors. We will need to try to determine a cause although it is likely that we will not find a specific cause. I did order some blood tests (most are not back yet), in addition I will plan on an ischemic evaluation, possibly catheterization Tuesday depending how diuresis goes. I discussed all this with him and he is in agreement. As long as he can lay flat and there are no other issues we may be able to perform the catheterization tomorrow. I will make him n.p.o. in case we can but reevaluate in the morning He is receiving intravenous Lasix and he is on lisinopril, he is on carvedilol now as well. I do not think his cough is due to lisinopril as he tells me he has been on a long time, but if that is considered a factor we can switch to Entresto now which would probably be a better drug anyhow. Subjective He is feeling better since admission and diuresis. He is complaining of a continued cough which is nonproductive, he expected that to go away when he had the fluid removed from his lungs. He notes that his legs are still swollen and he notes that he is still orthopneic. His dyspnea on exertion has improved significantly however and he has been walking in the hallway. Physical Exam Physical Exam: Constitutional: Alert, cooperative and in no distress. Pulmonary: Clear to auscultation bilaterally but with decreased breath sounds. Cardiac: Regular rhythm with no murmur, gallop or rub. Abdomen: Soft, nontender with normal bowel sounds. He is obese. Extremities: +3 bilateral tense edema. Skin: No rash, ecchymoses or petechiae. Results & Data Vital Signs (Past 12 Hours) Vital Signs Temp Pulse Pulse Resp BP Pulse Ox 10/22/18 07:25 95 H 10/22/18 07:01 37.0 C 93 H 17 115/72 90 10/22/18 04:30 37.1 C 72 16 124/80 94 10/22/18 00:47 108 H 10/22/18 00:25 37.0 C 98 H 18 103/47 L 92 Diagnostic Findings Telemetry: Sinus rhythm, one 13 beat run of PAT.
--- NOTE | 2018-10-22 13:53 | Progress Note ---
DATE: 10/22/2018 The patient was evaluated today. He is now down in telemetry. He has been diuresed and feels better and we performed a thoracentesis 48 hours ago and he looks better. He states he feels much better. I was also pleased with his x-ray. This is a transudate with LDH of only 91. His cytology is still pending. We will continue to follow along. VERITO
--- NOTE | 2018-10-22 18:51 | Hospitalist Progress Note ---
Date of Service October 22, 2018 Assessment & Plan (1) Acute systolic CHF (congestive heart failure): Presenting symptoms/signs all c/w CHF. Has been having progressively worsening dyspnea and cough for several months now. No history of any chest pain at rest or with exertion. He does have a strong family history of CAD, as well as severely uncontrolled diabetes, hypertension as risk factors for coronary artery disease EF 20-25% on echo here. Etiology unclear, could be ischemic versus viral versus [id number] in progress Clinically he is much improved with diuresis and removal of pleural effusion with thoracentesis, but remains with cough, significant peripheral edema, and crackles on exam Net negative 8.2L Cardiology consult appreciated -continue carvedilol 6.25 mg p.o. twice daily and will titrate up as needed- still tachy at times-will increase dose in the AM if continues -Continue lisinopril 20 mg daily -Continue diuresis with IV Lasix 40 mg to twice daily -Continue strict I's and O's, daily weights, low-sodium diet, fluid restriction -Plan is for cardiac cath to r/o ischemic cardiomyopathy as cause of severe CHF- scheduled for Tuesday if can lie flat (2) Pleural effusion: appreciate Dr Rey's consult. s/p thoracentesis on 10/20 on right. 1500cc of fluid removed. studies c/w transudative effusion likely from CHF. 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-he was happy about this -Counseled on weight loss, low carbohydrate diet, increased exercise when able to -Continue basal bolus regimen of insulin for now (5) Tobacco use: Chews tobacco -Has been counseled to quit (6) Fatty liver: Had outpatient liver ultrasound that showed fatty liver, mild elevation of AST on admission which is now resolved no signs of cirrhosis I do not believe his volume overloaded state is from liver disease but certainly at high risk of HOLMAN during his lifetime if he does not enact lifestyle changes (7) Morbid obesity with BMI of 40.0-44.9, adult: BMI 43 needs lifestyle changes, weight loss-discussed with patient (8) Hypertension: Continue lisinopril, carvedilol (9) DVT prophylaxis: Heparin SQ-will hold cardiac catheterization Disposition-remain on telemetry, plan for cardiac catheterization on Tuesday, needs continued IV diuresis Subjective Feels better, hasn't tried lying flat yet as previously it made him feel like he was suffocating. Has asia ambulating in the halls and denies GARCES. No CP. Tele with NSR, rates in the 90s-110s, spikes to the 130s. Review of Systems Review of Systems: All systems reviewed & are unremarkable except as noted in HPI & below Physical Exam Constitutional: WD/WN, vitals as above + obese Eyes: PERRL, conjunctivae normal, anicteric sclerae Neck: trachea midline, no thyromegaly Respiratory: normal respiratory effort Auscultation: + diminished lung sounds (At the right base) and + crackles (at the left base); no rhonchi and no wheezes Cardiovascular: Rate/Rhythm: regular rate and regular rhythm Heart Sounds: no murmur Vessels: no JVD (But difficult to tell due to obese neck) Extremities: + edema (2-3+ pitting edema in the legs to the knees bilaterally left greater than right) Gastrointestinal (Abdomen): normal bowel sounds, soft, nontender, no hepatosplenomegaly (Protuberant, obese abdomen) Musculoskeletal: Extremities: no cyanosis and no clubbing Skin: no rashes, warm and dry Neurologic: moves all extremities and awake; no focal motor deficits Psychiatric: A+Ox3, euthymic affect Results & Data Vital Signs (Past 12 Hours) Vital Signs Temp Pulse Pulse Resp BP BP Pulse Ox 10/22/18 15:29 36.7 C 98 H 18 133/95 90 10/22/18 14:57 98 H 10/22/18 11:36 37.1 C 67 20 132/70 92 10/22/18 07:25 95 H 10/22/18 07:01 37.0 C 93 H 17 115/72 90 Laboratory Results 10/22/18 10/22/18 10/22/18 Range/Units 16:13 11:21 07:41 Sodium (136-145) mmol/L Potassium (3.5-5.1) mmol/L Chloride (98-107) mmol/L Carbon Dioxide (21-32) mmol/L Anion Gap (3-11) BUN (7-18) mg/dl Creatinine (0.6-1.4) mg/dl Est Cr Clr Drug Dosing ml/min Est GFR ( Amer) Est GFR (Non-Af Amer) BUN/Creatinine Ratio (10-20) Glucose (70-99) mg/dl POC Glucose 159 H 182 H 129 H (70-99) Calcium (8.5-10.1) mg/dl Magnesium (1.8-2.4) mg/dl Total Bilirubin (0.2-1) mg/dl AST (15-37) U/L ALT (12-78) U/L Alkaline Phosphatase (45-117) U/L Total Protein (6.4-8.2) gm/dl Total Protein (PEP) Albumin (3.4-5.0) gm/dl Albumin (PEP) Globulin (2.5-4.0) gm/dl Albumin/Globulin Ratio (0.9-2) Ejgoo-6-Fmluncwzb Hzylh-8-Irczlwgie Bbda-7-Aeqrqonw Wjdy-5-Nzzrdbnb Gamma Globulins Monoclonal Peak 3 Ser Monoclonl Protein Ser Monoclonal Prot 2 PEP Interpretation Triglycerides (0-150) mg/dl Cholesterol (0-200) mg/dl LDL Cholesterol, Calc mg/dl VLDL Cholesterol, Calc mg/dl HDL Cholesterol mg/dl Cholesterol/HDL Ratio 10/22/18 10/22/18 10/21/18 Range/Units 05:20 05:20 20:31 Sodium 137 (136-145) mmol/L Potassium 3.8 (3.5-5.1) mmol/L Chloride 100 (98-107) mmol/L Carbon Dioxide 35 H (21-32) mmol/L Anion Gap 2.0 L (3-11) BUN 18 (7-18) mg/dl Creatinine 1.25 (0.6-1.4) mg/dl Est Cr Clr Drug Dosing 100.0 ml/min Est GFR ( Amer) 76.8 Est GFR (Non-Af Amer) 66.2 BUN/Creatinine Ratio 14.6 (10-20) Glucose 152 H (70-99) mg/dl POC Glucose 172 H (70-99) Calcium 9.1 (8.5-10.1) mg/dl Magnesium 1.9 (1.8-2.4) mg/dl Total Bilirubin 0.5 (0.2-1) mg/dl AST 24 (15-37) U/L ALT 40 (12-78) U/L Alkaline Phosphatase 89 (45-117) U/L Total Protein 5.8 L (6.4-8.2) gm/dl Total Protein (PEP) Pending Albumin 2.5 L (3.4-5.0) gm/dl Albumin (PEP) Pending Globulin 3.3 (2.5-4.0) gm/dl Albumin/Globulin Ratio 0.8 L (0.9-2) Zpldp-1-Kgcrbnayi Pending Nnaor-1-Guwkvskif Pending Diaf-4-Bnngrsrd Pending Ivtb-3-Bpumwrgu Pending Gamma Globulins Pending Monoclonal Peak 3 Pending Ser Monoclonl Protein Pending Ser Monoclonal Prot 2 Pending PEP Interpretation Pending Triglycerides 80 (0-150) mg/dl Cholesterol 106 (0-200) mg/dl LDL Cholesterol, Calc 65 mg/dl VLDL Cholesterol, Calc 16 mg/dl HDL Cholesterol 25 mg/dl Cholesterol/HDL Ratio 4 (1) Diabetes Diabetes mellitus complication status: without complication Diabetes mellitus intermediate manager insulin use: without long-term use Diabetes mellitus type: type 2 Qualified Code(s): E11.9 - Type 2 diabetes mellitus without complications (2) Hypertension Hypertension type: unspecified Qualified Code(s): I10 - Essential (primary) hypertension
[2018-10-22] MEDS: INSULIN GLARGINE SOLOSTAR 100 UNITS/ML 3 ML PEN SC SCH (20:34)
[2018-10-23 06:49] LABS: BUN Creatinine Ratio 16.1 (10-20); Calcium 9.4 mg/dl (8.5-10.1); Creatinine Clr Calc Pharmacy 94.7 ml/min; Est GFR (African American) 71.9; Magnesium 2.1 mg/dl (1.8-2.4); Potassium 4.4 mmol/L (3.5-5.1)
[2018-10-23] MEDS: FUROSEMIDE 40 MG in SYRINGE 0 ML IV SCH ×2 (07:43→17:54)
[2018-10-23] MEDS: LISINOPRIL 20 MG TAB PO SCH (07:43)
[2018-10-23] MEDS: MAGNESIUM OXIDE 400 MG TAB PO SCH ×2 (07:44→20:06)
[2018-10-23] MEDS: CARVEDILOL 6.25 MG TAB PO SCH (07:44)
[2018-10-23] MEDS: POTASSIUM CHLORIDE 20 MEQ TABCR PO SCH ×2 (07:44→20:05)
[2018-10-23] MEDS: INSULIN ASPART 100 UNITS/ML 3 ML PEN SC SCH ×4 (07:46→20:09)
--- NOTE | 2018-10-23 09:03 | Cardiology Progress Note ---
Date of Service October 23, 2018 Assessment & Plan (1) Acute systolic CHF (congestive heart failure): He presents with gradual onset of symptoms of congestive heart failure over the past 3 months or so. This became quite progressive and he presented with significant fluid overload and evaluation has demonstrated left ventricular dysfunction. Almost certainly his fluid retention is on the basis of his cardiomyopathy. He has improved with diuresis and has lost a good bit of weight but still has significant fluid overload and I would recommend continued diuresis. His symptoms have improved however and he feels that he can lay flat for his catheterization. (2) Cardiomyopathy: He has a cardiomyopathy, his symptoms have only been present for about 3 months although possibly the cardiomyopathy predated that. There is no clear cause identified. It could be idiopathic based on the global nature and the lack of other symptoms such as chest pain, etc. but it is also possible he has ischemic heart disease since he is also diabetic and has other risk factors. We will need to try to determine a cause although it is likely that we will not find a specific cause. I did order some blood tests (some are not back yet), in addition I will plan on an ischemic evaluation, we have him scheduled for catheterization today. I discussed all this with him and he is in agreement. He is receiving intravenous Lasix and he is on lisinopril, he is on carvedilol now as well. I do not think his cough is due to lisinopril as he tells me he has been on a long time, but if that is considered a factor we can switch to Entresto now which would probably be a better drug anyhow. His cough is improving and I suspect it is due to heart failure. Subjective He is feeling much better today, he is still having a cough which is productive of a slight amount of white sputum, but the cough has improved. He has less orthopnea, he notes that his legs are much less tense than they were although still swollen. He is breathing much better with activity. Physical Exam Physical Exam: Constitutional: Alert, cooperative and in no distress. He is obese. Pulmonary: Clear to auscultation bilaterally with overall diminished breath sounds. Cardiac: Regular rhythm with no murmur, gallop or rub. Abdomen: Soft, nontender with normal bowel sounds. Extremities: +3 bilateral pretibial edema but his skin is less tense than in the past. Skin: No rash, ecchymoses or petechiae. Results & Data Vital Signs (Past 12 Hours) Vital Signs Temp Pulse Pulse Resp BP BP Pulse Ox 10/23/18 08:30 98 H 10/23/18 07:09 36.7 C 91 H 20 125/81 91 10/23/18 03:30 36.7 C 90 16 121/75 94 10/23/18 00:21 36.5 C 96 H 20 110/75 93 10/22/18 23:16 97 H Diagnostic Findings Telemetry: Sinus rhythm with occasional runs of PAT. His heart rate has gradually dropped since admission which is consistent with provement his heart failure and addition of beta-blockade.
[2018-10-23] MEDS ORDERED: MIDAZOLAM HCL 1 MG/ML 2ML VIAL ONE (15:20)
[2018-10-23] MEDS ORDERED: NiCARDipine HCL INJ 2.5 MG/ML 10 ML AMP ONE (15:20)
[2018-10-23] MEDS ORDERED: NITROGLYCERIN/D5W 100MCG/ML 20ML SYR ONE (15:20)
[2018-10-23] MEDS ORDERED: fentaNYL citrate 100 MCG/2 ML VIAL ONE (15:20)
[2018-10-23] MEDS ORDERED: HEPARIN (PORCINE) 1000 UNIT/ML 10 ML (CATH LAB USE ONLY) ONE (15:20)
--- NOTE | 2018-10-23 16:32 | Post Anesthesia Assessment ---
Date of Service October 23, 2018 Post Sedation Assessment Vital Signs Temp Pulse Pulse Resp BP BP Pulse Ox 10/23/18 16:08 36.8 C 80 18 155/98 H 96 10/23/18 10:58 36.8 C 81 20 129/85 96 10/23/18 08:30 98 H 10/23/18 07:09 36.7 C 91 H 20 125/81 91 10/23/18 03:30 36.7 C 90 16 121/75 94 10/23/18 00:21 36.5 C 96 H 20 110/75 93 10/22/18 23:16 97 H 10/22/18 20:02 37.2 C 99 H 18 126/84 94 Recovery Score Activity: Moves 4 extremities Respiration: Deep Breath/Cough Circulation: +/-20% PreAnes Value Consciousness: Fully Awake Oxygen Saturation: O2 needed for >90% Discharge Sedation Level of Care: Fast Track Phase II Post Sedation Plan On clinical assessment, the patient appears to have tolerated the sedation without complications. Patient is recovering as anticipated. Patient will continue to be monitored by nursing and may be discharged when sedation discharge criteria are met per below protocol. Upon Completions of procedure and additional 15 minutes continue every 5 minute vital signs and the P.A.R. score; then discharge to a Phase I or Fast Track to Phase II per the following guidelines: * Discharge Patient to appropriate Phase II area if PAR is 8 or greater or return to pre- procedure baseline. The post - procedure orders will be as directed. * If PAR score is less than 8 or not return to pre-procedure baseline then patient will follow Phase I monitoring till PAR is reached for Phase II. The Phase I may be done in procedure room or may call to secure a Phase I area. * If naloxone or flumazenil are used for reversal, hold in Phase I for continued monitoring from when last reversal dose was given for a minimum of 60 minutes or longer pending the nurse and/or physician discretion of patient condition before discharge to Phase II. Please call the Sedation Physician to re-evaluate and complete post-note for discharge to Phase II area. Do NOT discharge from procedure sedation or Phase 1 until post- sedation evaluation note is complete by procedure /sedation MD Sedation Discharge Instructions to be given to the patient at discharge to home.
--- NOTE | 2018-10-23 16:32 | Pre Anesthesia Assessment ---
Date of Service October 23, 2018 Pre Sedation Assessment Vital Signs Temp Pulse Pulse Resp BP BP Pulse Ox 10/23/18 16:08 36.8 C 80 18 155/98 H 96 10/23/18 10:58 36.8 C 81 20 129/85 96 10/23/18 08:30 98 H 10/23/18 07:09 36.7 C 91 H 20 125/81 91 10/23/18 03:30 36.7 C 90 16 121/75 94 10/23/18 00:21 36.5 C 96 H 20 110/75 93 10/22/18 23:16 97 H 10/22/18 20:02 37.2 C 99 H 18 126/84 94 Pre-Sedation Airway Assessment Smoking Status: Never smoker Hx Sleep Apnea: No Short, Thick Neck: No Thyromental Distance: > or= 3.5 Finger Breadths Oral Cavity: + Chipped Teeth Mallampati Class: III ASA: ASA3 NPO Status Date of Last Intake of Fluids: 10/22/18 Time of Last Intake of Fluids: 19:00 Date of Last Intake of Solid Food: 10/22/18 Time of Last Intake of Solid Foods: 19:00 Notes The planned sedation has been discussed with the patient. Informed Consent was obtained. I have identified the patient, determined the appropriateness of sedation and have assessed the patient immediately prior to the procedure. All medicine(s) and interventions are by my order.
--- NOTE | 2018-10-23 16:41 | Cardiac Catheterization ---
Cardiac Cath Procedure Full Procedure Date October 23, 2018 Pre-Procedure Diagnosis Pre-Procedure Diagnosis: Cardiomyopathy AUC Score AUC Score: 8 Post-Procedure Diagnosis Post-Procedure Diagnosis: Moderate CAD and Normal Intracardiac Pressures Procedure(s) Performed Procedure(s) Performed: Coronary Angiography and Left Heart Cath Beauty Therapist Jean Kumar MD Concrete Curer(s) Savage Estimated Blood Loss Estimated Blood Loss: 5 Medication(s) Medication(s): Fentanyl, Heparin, Lidocaine 1%, Nicardipine, Nitroglycerin and Versed Summary of Findings Indication: New severe LV dysfunction Access: 6 Fr right radial artery Catheters: [place], JL 3.5 Findings: LM -large caliber, long vessel LAD -moderate caliber, diffuse moderate disease and small apical segment. First diagonal is a large caliber vessel with 80% stenosis in superior distal branch. Circumflex -moderate caliber, mild disease in moderate caliber OM 2 RCA -very large, dominant vessel without significant disease LVEDP - 15 Arterial Closure: TR band Summary: 1. Nonobstructive disease in major epicardial vessels. 2. Severe branch vessel disease - 80% stenosis in distal superior branch of large first diagonal 3. 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
--- NOTE | 2018-10-23 17:03 | Hospitalist Progress Note ---
Date of Service October 23, 2018 Assessment & Plan (1) Acute systolic CHF (congestive heart failure): Presenting symptoms/signs all c/w CHF. Has been having progressively worsening dyspnea and cough for several months now. No history of any chest pain at rest or with exertion. He does have a strong family history of CAD, as well as severely uncontrolled diabetes, hypertension as risk factors for coronary artery disease EF 20-25% on echo here. Etiology unclear, it is nonischemic after normal major vessels on cardiac cath -etiology could be viral versus [id number] in progress Clinically he is much improved with diuresis and removal of pleural effusion with thoracentesis -remains with mild cough, significant peripheral edema albeit improved Net negative 9L and - 9 KG Cardiology consult appreciated -incease carvedilol to 12.5 mg p.o. twice daily as is still tachy at times -Continue lisinopril 20 mg daily -Continue diuresis with IV Lasix 40 mg twice daily and consider switching to po lasix tomorrow -Continue strict I's and O's, daily weights, low-sodium diet, fluid restriction -will need close outpt f/u (2) Pleural effusion: appreciate Dr Rey's consult. s/p thoracentesis on 10/20 on right. 1500cc of fluid removed. studies c/w transudative effusion likely from CHF. 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 on a stable insulin regimen-he was happy about this -Counseled on weight loss, low carbohydrate diet, increased exercise when able to -Continue basal bolus regimen of insulin for now, but wishes to try Trulicity as outpt or other GLP that is once weekly (5) Tobacco use: Chews tobacco -Has been counseled to quit (6) Fatty liver: Had outpatient liver ultrasound that showed fatty liver, mild elevation of AST on admission which is now resolved no signs of cirrhosis I do not believe his volume overloaded state is from liver disease but certainly at high risk of HOLMAN during his lifetime if he does not enact lifestyle changes (7) Morbid obesity with BMI of 40.0-44.9, adult: BMI 43 needs lifestyle changes, weight loss-discussed with patient (8) Hypertension: Continue lisinopril, carvedilol (9) CAD (coronary artery disease), pal[place] coronary artery: Cardiac cath on 10/23 with 1. Nonobstructive disease in major epicardial vessels. 2. Severe branch vessel disease - 80% stenosis in distal superior branch of large first diagonal 3. Normal intracardiac filling pressure -continue Coreg, add on ASA, statin high intensity (10) Nonischemic cardiomyopathy: as above (11) DVT prophylaxis: Heparin SQ, MARY hose Disposition-remain on telemetry, needs continued IV diuresis Subjective Just returned from cardiac cath, had no intervention performed. Had nonobstructive disease in major epicardial vessels, severe branch vessel disease with 80% stenosis in distal superior branch of large first diagonal. He was able to lie flat last night and for the cath, feels much improved, legs less swollen. No ches tpain Tele with NSR, PACs, burst of SVT, and rates 80s-90s Review of Systems Review of Systems: All systems reviewed & are unremarkable except as noted in HPI & below Physical Exam Constitutional: WD/WN, vitals as above + obese Eyes: PERRL, conjunctivae normal, anicteric sclerae Neck: trachea midline, no thyromegaly Respiratory: normal respiratory effort Auscultation: + diminished lung sounds (At the right base); no crackles, no rhonchi and no wheezes Cardiovascular: Rate/Rhythm: regular rate and regular rhythm Heart Sounds: no murmur Extremities: + edema (2+ pitting edema in the legs to the knees bilaterally L>R, improved) Gastrointestinal (Abdomen): normal bowel sounds, soft, nontender, no hepatosplenomegaly (Protuberant, obese abdomen) Musculoskeletal: Extremities: no cyanosis and no clubbing Skin: no rashes, warm and dry Neurologic: moves all extremities and awake; no focal motor deficits Psychiatric: A+Ox3, euthymic affect Results & Data Vital Signs (Past 12 Hours) Vital Signs Temp Pulse Pulse Resp BP BP Pulse Ox 10/23/18 16:08 36.8 C 80 18 155/98 H 96 10/23/18 10:58 36.8 C 81 20 129/85 96 10/23/18 08:30 98 H 10/23/18 07:09 36.7 C 91 H 20 125/81 91 Laboratory Results 10/23/18 10/23/18 10/23/18 Range/Units 16:52 11:08 07:16 Sodium (136-145) mmol/L Potassium (3.5-5.1) mmol/L Chloride (98-107) mmol/L Carbon Dioxide (21-32) mmol/L Anion Gap (3-11) BUN (7-18) mg/dl Creatinine (0.6-1.4) mg/dl Est Cr Clr Drug Dosing ml/min Est GFR ( Amer) Est GFR (Non-Af Amer) BUN/Creatinine Ratio (10-20) Glucose (70-99) mg/dl POC Glucose 132 H 124 H 112 H (70-99) Calcium (8.5-10.1) mg/dl Magnesium (1.8-2.4) mg/dl 10/23/18 10/22/18 10/22/18 Range/Units 05:09 20:29 20:26 Sodium 138 (136-145) mmol/L Potassium 4.4 D (3.5-5.1) mmol/L Chloride 101 (98-107) mmol/L Carbon Dioxide 34 H (21-32) mmol/L Anion Gap 3.0 (3-11) BUN 21 H (7-18) mg/dl Creatinine 1.32 (0.6-1.4) mg/dl Est Cr Clr Drug Dosing 94.7 ml/min Est GFR ( Amer) 71.9 Est GFR (Non-Af Amer) 62.0 BUN/Creatinine Ratio 16.1 (10-20) Glucose 133 H (70-99) mg/dl POC Glucose 147 H 521 H* (70-99) Calcium 9.4 (8.5-10.1) mg/dl Magnesium 2.1 (1.8-2.4) mg/dl Diagnostic Findings Cardiac cath: 1. Nonobstructive disease in major epicardial vessels. 2. Severe branch vessel disease - 80% stenosis in distal superior branch of large first diagonal 3. Normal intracardiac filling pressure (1) Diabetes Diabetes mellitus complication status: without complication Diabetes mellitus salvage determiner insulin use: without salvage determiner use Diabetes mellitus type: type 2 Qualified Code(s): E11.9 - Type 2 diabetes mellitus without complications (2) Hypertension Hypertension type: unspecified Qualified Code(s): I10 - Essential (primary) hypertension
[2018-10-23] MEDS: CARVEDILOL 12.5 MG TAB PO SCH (20:05)
[2018-10-23] MEDS: INSULIN GLARGINE SOLOSTAR 100 UNITS/ML 3 ML PEN SC SCH (20:07)
[2018-10-23] MEDS: HEPARIN SOD 5,000 UNIT/0.5 ML VIAL SQ SCH (22:30)
[2018-10-24] MEDS: HEPARIN SOD 5,000 UNIT/0.5 ML VIAL SQ SCH ×3 (05:47→21:54)
[2018-10-24 07:04] LABS: BUN Creatinine Ratio 20.9 (10-20); Calcium 9.2 mg/dl (8.5-10.1); Creatinine Clr Calc Pharmacy 104.7 ml/min; Est GFR (African American) 83.2; Est GFR (Non-African American) 71.8; Magnesium 2.2 mg/dl (1.8-2.4); Potassium 4.4 mmol/L (3.5-5.1)
[2018-10-24] MEDS: FUROSEMIDE 40 MG in SYRINGE 0 ML IV SCH ×2 (08:00→17:04)
[2018-10-24] MEDS: CARVEDILOL 12.5 MG TAB PO SCH ×2 (08:01→20:36)
[2018-10-24] MEDS: LISINOPRIL 20 MG TAB PO SCH (08:02)
[2018-10-24] MEDS: MAGNESIUM OXIDE 400 MG TAB PO SCH ×2 (08:02→20:36)
[2018-10-24] MEDS: POTASSIUM CHLORIDE 20 MEQ TABCR PO SCH ×2 (08:02→20:36)
[2018-10-24] MEDS: INSULIN ASPART 100 UNITS/ML 3 ML PEN SC SCH ×4 (08:03→20:38)
[2018-10-24] MEDS: ASPIRIN 81 MG ECTAB PO SCH (08:28)
[2018-10-24] MEDS: ATORVASTATIN 40 MG TAB PO SCH (08:28)
--- NOTE | 2018-10-24 11:14 | Cardiology Progress Note ---
Date of Service October 24, 2018 Assessment & Plan (1) Acute systolic CHF (congestive heart failure): He presents with gradual onset of symptoms of congestive heart failure over the past 3 months or so. This became quite progressive and he presented with significant fluid overload and evaluation has demonstrated left ventricular dysfunction. Almost certainly his fluid retention is on the basis of his cardiomyopathy. He has improved with diuresis and has lost a good bit of weight but still has significant fluid overload and I would recommend continued diuresis. His symptoms have improved however and perhaps we can transition him to oral diuretics, I have not done that. (2) Cardiomyopathy: He has a cardiomyopathy, his symptoms have only been present for about 3 months although possibly the cardiomyopathy predated that. There is no clear c ause identified. It could be idiopathic based on the global nature and based on his catheterization it is not ischemic heart disease (although he does have nonobstructive coronary disease). So far his blood tests have not been helpful, although the protein electrophoresis is still pending. We need to continue aggressive medical therapy, but I would not increase his medications too much too quickly or we often have side effects requiring decreasing or discontinuing them. (3) CAD (coronary artery disease): He does have nonobstructive coronary artery disease based on his catheterization. He needs to be on risk factor modification including statin therapy (which we can titrate to higher levels as an outpatient, he is on 40 mg now) and I think he should be on aspirin as well (which I have added). Subjective He continues to feel better, his breathing and his activity level continue to improve. His legs continue to feel less edematous to him. He has no cardiovascular complaints today. Physical Exam Physical Exam: Constitutional: Alert, cooperative and in no distress. Pulmonary: Clear to auscultation bilaterally. Cardiac: Regular rhythm with no murmur, gallop or rub. Abdomen: Soft, nontender with normal bowel sounds. Extremities: +3 bilateral pretibial edema. Skin: No rash, ecchymoses or petechiae. Results & Data Vital Signs (Past 12 Hours) Vital Signs Temp Pulse Pulse Resp BP BP Pulse Ox 10/24/18 08:00 91 H 10/24/18 07:19 36.6 C 84 18 113/68 92 10/24/18 02:56 36.6 C 80 18 115/84 92 10/24/18 00:14 36.5 C 86 18 118/82 96 10/24/18 00:00 91 H Diagnostic Findings Telemetry: Sinus rhythm and sinus tachycardia, rate improved from admission but still somewhat elevated. Electrocardiogram yesterday: Sinus rhythm 92 bpm, left axis deviation. Similar to prior.
[2018-10-24] MEDS ORDERED: ASPIRIN 81 MG ECTAB PO SCH (11:30)
--- NOTE | 2018-10-24 14:52 | Hospitalist Progress Note ---
Date of Service October 24, 2018 Assessment & Plan (1) Acute systolic CHF (congestive heart failure): Presenting symptoms/signs all c/w CHF. Has been having progressively worsening dyspnea and cough for several months now. No history of any chest pain at rest or with exertion. He does have a strong family history of CAD, as well as severely uncontrolled diabetes, hypertension as risk factors for coronary artery disease EF 20-25% on echo here. Etiology unclear, it is nonischemic CM after normal major vessels on cardiac cath -etiology could be viral versus [id number] in progress-QUETA level, SPEP, UPEP all still pending. -has lost 12L of fluid and 12 kg body weight since admission, much improved, but still volume overloaded Also s/p removal of pleural effusion with thoracentesis on the right Cardiology consult appreciated -continue carvedilol 12.5 mg p.o. twice daily -Continue lisinopril 20 mg daily -Continue diuresis with IV Lasix 40 mg twice daily and will switch to po diuretic tomorrow-perhaps Bumex -Continue strict I's and O's, daily weights, low-sodium diet, fluid restriction -will need close outpt f/u with CHF clinic-this is being arranged (2) Pleural effusion: appreciate Dr Rey's consult. s/p thoracentesis on 10/20 on right. 1500cc of fluid removed. studies c/w transudative effusion likely from CHF. 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-he still wants to hold off on doing insulin for now but considering it in the future -Counseled on weight loss, low carbohydrate diet, increased exercise when able to -Continue basal bolus regimen of insulin for now, but wishes to try Trulicity as outpt or other GLP that is once weekly -will restart home metformin and glipizide upon dc (5) Tobacco use: Chews tobacco -Has been counseled to quit (6) Fatty liver: Had outpatient liver ultrasound that showed fatty liver, mild elevation of AST on admission which is now resolved no signs of cirrhosis I do not believe his volume overloaded state is from liver disease but certainly at high risk of HOLMAN during his lifetime if he does not enact lifestyle changes (7) Morbid obesity with BMI of 40.0-44.9, adult: BMI 43 needs lifestyle changes, weight loss-discussed with patient (8) Hypertension: controlled -continue lisinopril, carvedilol (9) CAD (coronary artery disease), rob[place] coronary artery: Cardiac cath on 10/23 with 1. Nonobstructive disease in major epicardial vessels. 2. Severe branch vessel disease - 80% stenosis in distal superior branch of large first diagonal 3. Normal intracardiac filling pressure -continue Coreg, added on ASA, added on statin high intensity (10) Nonischemic cardiomyopathy: as above (11) DVT prophylaxis: Heparin SQ, MARY hose Disposition-remain on telemetry, needs continued IV diuresis but says he is leaving tomorrow Subjective Feeling great, ambulating all around the halls. No SOB, no orthopnea, no Chest pain. He is anxious to leave the hospital but is willing to stay one more night. Tele with NSR, rates 80-90s Review of Systems Review of Systems: All systems reviewed & are unremarkable except as noted in HPI & below Physical Exam Constitutional: WD/WN, vitals as above + obese Eyes: PERRL, conjunctivae normal, anicteric sclerae ENMT: external ear and nose normal, oropharynx normal Neck: trachea midline, no thyromegaly Respiratory: normal respiratory effort, lungs clear to auscultation Cardiovascular: Rate/Rhythm: regular rate and regular rhythm Heart Sounds: no murmur Extremities: + edema (1-2+ pitting edema in the legs to the knees bilaterally L>R, improved) Gastrointestinal (Abdomen): normal bowel sounds, soft, nontender, no hepatosplenomegaly (Protuberant, obese abdomen) Musculoskeletal: Extremities: no cyanosis and no clubbing Skin: no rashes, warm and dry Neurologic: moves all extremities and awake; no focal motor deficits Psychiatric: A+Ox3, euthymic affect Results & Data Vital Signs (Past 12 Hours) Vital Signs Temp Pulse Pulse Resp BP Pulse Ox 10/24/18 11:13 36.9 C 76 18 121/81 95 10/24/18 08:00 91 H 10/24/18 07:19 36.6 C 84 18 113/68 92 10/24/18 02:56 36.6 C 80 18 115/84 92 Laboratory Results 10/24/18 10/24/18 10/24/18 Range/Units 11:18 07:05 05:31 Sodium 139 (136-145) mmol/L Potassium 4.4 (3.5-5.1) mmol/L Chloride 100 (98-107) mmol/L Carbon Dioxide 39 H (21-32) mmol/L Anion Gap 0 L (3-11) BUN 24 H (7-18) mg/dl Creatinine 1.17 (0.6-1.4) mg/dl Est Cr Clr Drug Dosing 104.7 ml/min Est GFR ( Amer) 83.2 Est GFR (Non-Af Amer) 71.8 BUN/Creatinine Ratio 20.9 H (10-20) Glucose 120 H (70-99) mg/dl POC Glucose 172 H 101 H (70-99) Calcium 9.2 (8.5-10.1) mg/dl Magnesium 2.2 (1.8-2.4) mg/dl 10/23/18 10/23/18 Range/Units 20:01 16:52 Sodium (136-145) mmol/L Potassium (3.5-5.1) mmol/L Chloride (98-107) mmol/L Carbon Dioxide (21-32) mmol/L Anion Gap (3-11) BUN (7-18) mg/dl Creatinine (0.6-1.4) mg/dl Est Cr Clr Drug Dosing ml/min Est GFR ( Amer) Est GFR (Non-Af Amer) BUN/Creatinine Ratio (10-20) Glucose (70-99) mg/dl POC Glucose 259 H 132 H (70-99) Calcium (8.5-10.1) mg/dl Magnesium (1.8-2.4) mg/dl (1) Diabetes Diabetes mellitus type: type 2 Diabetes mellitus half-way insulin use: without half-way use Diabetes mellitus complication status: without complication Qualified Code(s): E11.9 - Type 2 diabetes mellitus without complications (2) Hypertension Hypertension type: unspecified Qualified Code(s): I10 - Essential (primary) hypertension
[2018-10-24 19:02] LABS: Albumin 2.7 G/DL (3.8-4.8); Alpha 1 Globulin 0.3 G/DL (0.2-0.3); Alpha 2 Globulin 0.6 G/DL (0.5-0.9); Beta-1-Globulin 0.4 G/DL (0.4-0.6); Beta-2-Globulin 0.4 G/DL (0.2-0.5); Gamma Globulin 0.9 G/DL (0.8-1.7); Monoclonal Protein Band 1 DNR G/DL (NOT DETECTED); Monoclonal Protein Band 2 DNR G/DL (NOT DETECTED); Monoclonal Protein Band 3 DNR G/DL (NOT DETECTED); Total Protein 5.3 G/DL (6.2-8.3)
[2018-10-24] MEDS: INSULIN GLARGINE SOLOSTAR 100 UNITS/ML 3 ML PEN SC SCH (20:37)
[2018-10-25 06:31] LABS: BUN Creatinine Ratio 18.5 (10-20); Calcium 9.2 mg/dl (8.5-10.1); Creatinine Clr Calc Pharmacy 100.4 ml/min; Est GFR (African American) 79.9; Est GFR (Non-African American) 68.9; Magnesium 2.2 mg/dl (1.8-2.4)
[2018-10-25] MEDS: HEPARIN SOD 5,000 UNIT/0.5 ML VIAL SQ SCH ×2 (07:40→16:47)
[2018-10-25] MEDS: INSULIN ASPART 100 UNITS/ML 3 ML PEN SC SCH ×3 (07:41→16:49)
[2018-10-25] MEDS: CARVEDILOL 12.5 MG TAB PO SCH (07:42)
[2018-10-25] MEDS: ASPIRIN 81 MG ECTAB PO SCH (07:42)
[2018-10-25] MEDS: ATORVASTATIN 40 MG TAB PO SCH (07:42)
[2018-10-25] MEDS: MAGNESIUM OXIDE 400 MG TAB PO SCH (07:43)
[2018-10-25] MEDS: LISINOPRIL 20 MG TAB PO SCH (07:43)
[2018-10-25] MEDS: FUROSEMIDE 40 MG in SYRINGE 0 ML IV SCH ×2 (07:43→16:47)
[2018-10-25] MEDS: POTASSIUM CHLORIDE 20 MEQ TABCR PO SCH (07:43)
--- NOTE | 2018-10-25 13:18 | Cardiology Progress Note ---
Date of Service October 25, 2018 Assessment & Plan (1) Acute systolic CHF (congestive heart failure): He presents with gradual onset of symptoms of congestive heart failure over the past 3 months or so. This became quite progressive and he presented with significant fluid overload and evaluation has demonstrated left ventricular dysfunction. Almost certainly his fluid retention is on the basis of his cardiomyopathy. He has improved with diuresis and has lost a lot of weight. He still has some fluid retention that this can probably be handled with oral diuretics at home. (2) Cardiomyopathy: He has a cardiomyopathy, his symptoms have only been present for about 3 months although possibly the cardiomyopathy predated that. There is no clear cause identified. It could be idiopathic based on the global nature and based on his catheterization it is not ischemic heart disease (although he does have nonobstructive coronary disease). So far his blood tests have not been helpful, although the protein electrophoresis is still pending. We need to continue aggressive medical therapy, but I would not increase his medications too quickly or we often have side effects requiring decreasing or discontinuing them. With his cardiomyopathy and severe left ventricular dysfunction he is at risk of sudden . He is a candidate for a LifeVest. I discussed this with him and his family and he is agreeable. I will try to make those arrangements before he goes home. (3) CAD (coronary artery disease): He does have nonobstructive coronary artery disease based on his catheterization. He needs to be on risk factor modification including statin therapy (which we can titrate to higher levels as an outpatient, he is on 40 mg now) and I think he should be on aspirin as well. Subjective He is feeling much better today. He is not having difficulty with shortness of breath with activities, his legs are much less swollen and he has no difficulty sleeping. Physical Exam Physical Exam: Constitutional: Alert, cooperative and in no distress. Pulmonary: Clear to auscultation bilaterally. Cardiac: Regular rhythm with no murmur, gallop or rub. Abdomen: Soft, nontender with normal bowel sounds. Extremities: +2 bilateral pretibial edema. Skin: No rash, ecchymoses or petechiae. Results & Data Vital Signs (Past 12 Hours) Vital Signs Temp Pulse Pulse Resp BP Pulse Ox 10/25/18 08:00 88 10/25/18 07:50 36.6 C 76 124/79 96 10/25/18 03:57 36.6 C 82 18 123/77 93 Diagnostic Findings Telemetry: Sinus rhythm and sinus tachycardia, heart rate improved over the last several days
--- NOTE | 2018-10-25 14:52 | Heart Failure Progress Note ---
Date of Service October 25, 2018 Assessment & Plan (1) Acute systolic CHF (congestive heart failure): He presents with gradual onset of symptoms of congestive heart failure over the past 3 months or so. This became quite progressive and he presented with significant fluid overload and evaluation has demonstrated left ventricular dysfunction. Almost certainly his fluid retention is on the basis of his cardiomyopathy. He has improved significantly with diuresis during his admission. He will likely continue to diuresis as an outpatient and will require close follow up. His renal function remains normal at this time but I suspect he is near euvolemia. 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 This will likely present some challenges with managing his heart failure. He admits he does not follow a low sodium diet and his options on the road are limited. He often eats fast food. He also drinks moderate amounts of fluids. He is often out of town so outpatient follow up may be difficult for him. He has been advised to weigh himself daily and write them down. He was instructed to bring his weight sheet to each appointment. He was advised to call the office for weight gain of 2-3 lb overnight or 5 lb in one week. Fluid restriction and low sodium diet were recommended. Disposition: Follow up 10/31/18 at 2:00pm with HF program. Call sooner if worsening symptoms or problems. (2) Cardiomyopathy: He has a cardiomyopathy, his symptoms have only been present for about 3 months although possibly the cardiomyopathy predated that. There is no clear cause identified. It could be idiopathic based on the global nature and based on his catheterization it is not ischemic heart disease (although he does have nonobstructive coronary disease). There is a possibilty that is a viral cardiomyopathy based on his history. So far his blood tests have not been helpful, although the protein electrophoresis is still pending. We need to continue aggressive guideline based medical therapy including carvedilol and lisinopril. Will continue cautious titration as an outpatient. With his cardiomyopathy and severe left ventricular dysfunction he is at risk of sudden . He is a candidate for a LifeVest. Dr. Cohn has discussed this with him and his family and he is agreeable. The patient does not currently have insurance, case management is working on options. (3) CAD (coronary artery disease): He does have nonobstructive coronary artery disease based on his catheterization. He needs to be on risk factor modification including statin therapy (which we can titrate to higher levels as an outpatient, he is on 40 mg now) and I think he should be on aspirin as well. Disposition: Follow up 10/31/18 at 2:00pm with HF program. Follow up with Dr. Cohn in 4 weeks. Call sooner if worsening symptoms or problems. Heart failure discharge recommendations: - Lasix 20 mg BID - Lisinopril 20 mg daily - Carvedilol 12.5 mg BID - Atorvastatin 40 mg daily - ASA 81 mg daily - Potassium 20 meq BID Subjective Mr. Martinez is a 53 year old male with a history of DM, fatty liver disease, and newly diagnosed dilated cardiomyopathy and acute systolic congestive heart failure. He has no previous cardiac history. He has been referred to the heart failure program by Dr. Cohn, who is now his primary credit risk analyst. Patient presented with symptoms of heart failure developing over several months including weight gain, swelling, and dyspnea. Echocardiogram revealed significantly decreased left ventricular systolic function with an EF of 20-25%. Cardiac cath was performed on 10/23/18 and revealed nonobstructive coronary disease. Patient reports he had a viral illness back in April which could be a contributing factor to his newly diagnosed cardiomyopathy. Protein electrophoresis is pending. He denies alcohol use but does chew tobacco regularly. He was started on diuretics, Lasix 80 mg IV BID, and has had significant improvement. He is negative 16 L and down 28 lbs this admission. He is feeling much better today. He is very anxious to be discharged. He is not having difficulty with shortness of breath with activities, his legs are much less swollen and he has no difficulty sleeping. Physical Exam Physical Exam: Constitutional: Alert, oriented, in no acute distress HEENT: Head is atraumatic and normocephalic. EOMs intact. Sclera anicteric. Face is symmetric. No perioral cyanosis. Mucous membranes moist. Neck: Supple, no JVD Pulmonary: Normal respiratory effort, clear to auscultation bilaterally Cardiac: Regular rate and rhythm. Normal S1 and S2, no gallops, no rubs, no murmurs Extremities: 2+ radial pulses bilaterally. 2+ posterior tibialis pulses bilaterally. 1+ pitting edema. No cyanosis or clubbing. Abdomen: Normal bowel sounds, soft, non-tender, no abdominal mass palpated Skin: Normal skin color, turgor, and pigmentation, no rash, no skin lesions Neurological: Patient is awake, alert, and oriented. Pleasant and cooperative. Answers questions appropriately. Speech is clear. Normal movement in all 4 ext remities. Gait pattern is unremarkable. Results & Data Vital Signs (Past 12 Hours) Vital Signs Temp Pulse Pulse Resp BP Pulse Ox 10/25/18 08:00 88 10/25/18 07:50 36.6 C 76 124/79 96 10/25/18 03:57 36.6 C 82 18 123/77 93
--- NOTE | 2018-10-25 17:57 | Discharge Summary ---
Date of Service October 25, 2018 Admission HPI Per Admitting Provider 53 yo M with DM on metformin, glipizide, chronic LE edema presenting with worsening edema. Patient has been on Lasix 40 mg daily for the last 43 days for water retention according to patient. He also reports 3 weeks of worsening sob cough. He was sent for U/S liver was told he had fatty liver disease . He also had labwork done and was referred to welt slasher but has not had appointment yet. He denies chest pain, calf tenderness, palpitation, lightheadedness, dizziness. occasional n/v, fevers, chills. He has never had echo of heart or been told he had CHF. In the ED he was found to be afebrile, tachycardic, tachypneic without hypoxia, cbc unremarkable, cmp unremarkable other than low albumin. He had a neg venous doppler bilateral lower extremities, CXR with moderate right pleural effusion with airspace opacity. He received 40 mg IV Lasix and 10 mg IV Labetolol. Principal Diagnosis Acute systolic CHF, nonischemic cardiomyopathy Discharge Exam Constitutional WD/WN, vitals as above + obese Eyes PERRL, conjunctivae normal, anicteric sclerae ENMT external ear and nose normal, oropharynx normal Neck trachea midline, no thyromegaly Respiratory normal respiratory effort, lungs clear to auscultation normal respiratory effort Auscultation: no crackles, no rhonchi and no wheezes Cardiovascular Rate/Rhythm: regular rate and regular rhythm Heart Sounds: no murmur Vessels: no JVD (But difficult to tell due to obese neck) Extremities: + edema (1+ pitting edema in the legs to the knees bilaterally L>R, improved) Gastrointestinal (Abdomen) normal bowel sounds, soft, nontender, no hepatosplenomegaly (Protuberant, obese abdomen) Musculoskeletal Extremities: no cyanosis and no clubbing Skin no rashes, warm and dry Neurologic moves all extremities and awake; no focal motor deficits Psychiatric A+Ox3, euthymic affect Discharge Data Allergies Allergy/AdvReac Type Severity Reaction Status Date / Time No Known Allergies Allergy Unverified 10/19/18 21:38 Consultations 10/20/18 00:07 ED Decision to Admit Stat 10/20/18 02:36 Consult Case Management - Discharge Planning Routine Consult Thoracic Surgery Routine 10/20/18 16:37 Consult Cardiology Routine Procedures Performed Operation Date: 10/23/18 11:00 Actual Procedures p Cath, Left with Cors and Vent - Crescencio Kumar MD s Cineradiography w/Routine Exam - Crescencio Kumar MD Ordered Studies 10/19/18 21:48 US venous doppler LE BI Stat 10/20/18 02:36 CT abd pelvis wo con Urgent 10/23/18 06:57 CL Cath Imgs for PACS use only Routine Chest x-rays Echocardiogram Hospital Course (1) Acute systolic CHF (congestive heart failure): Presenting symptoms/signs all c/w CHF. Has been having progressively worsening dyspnea and cough for several months now. No history of any chest pain at rest or with exertion. He does have a strong family history of CAD, as well as severely uncontrolled diabetes, hypertension as risk factors for coronary artery disease EF 20-25% on echocardiogram here. Etiology unclear, it is nonischemic CM after normal major vessels on cardiac cath -etiology could be viral versus [id number] in progress-QUETA level normal, SPEP with faint M spike in the beta-2 microglobulin region, UPEP negative -Ordered serum immunofixation electrophoresis that is pending at the time of discharge -has lost 16L of fluid and 13 kg body weight since admission with IV diuresis with Lasix, much improved, but still some residual volume overloaded Also s/p removal of pleural effusion with thoracentesis on the right with great improvement in his dyspnea Cardiology consult appreciated He was felt stable to go home with a Life Vest in place in case of ventricular arrhythmia he was given lengthy instruction on how this works -continue carvedilol 12.5 mg p.o. twice daily -Continue lisinopril 20 mg daily -Continue diuresis with Lasix 40 mg p.o. twice daily -Continue potassium replacement upon discharge with potassium chloride 10 mill equivalents p.o. twice daily -Continue fluid restriction of 1800 mL's per 24 hours on discharge, daily weights, low-sodium diet -will need close outpt f/u with CHF clinic-this has been arranged - will need repeat echo in a few months and if EF not improving, would be a candidate for AICD (2) Pleural effusion: appreciate Dr Rey's consult. s/p thoracentesis on 10/20 on right. 1500cc of fluid removed. studies c/w transudative effusion likely from CHF. 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 on a stable insulin regimen-he still wants to hold off on doing insulin for now but considering it in the future -Counseled on weight loss, low carbohydrate diet, increased exercise when able to -Received basal bolus regimen of insulin in the hospital, but wishes to try Trulicity as outpt or other GLP that is once weekly in the future if he can afford it or can get samples from his PCP -will restart home metformin and glipizide upon dc (5) Tobacco use: Chews tobacco -Has been counseled to quit (6) Fatty liver: Had outpatient liver ultrasound that showed fatty liver, mild elevation of AST on admission which is now resolved no signs of cirrhosis I do not believe his volume overloaded state is from liver disease but certainly at high risk of HOLMAN during his lifetime if he does not enact lifestyle changes (7) Morbid obesity with BMI of 40.0-44.9, adult: BMI 40 needs lifestyle changes, weight loss-discussed with patient (8) Hypertension: controlled -continue lisinopril, carvedilol (9) CAD (coronary artery disease), kiana coronary artery: Cardiac cath on 10/23 with 1. Nonobstructive disease in major epicardial vessels. 2. Severe branch vessel disease - 80% stenosis in distal superior branch of large first diagonal 3. Normal intracardiac filling pressure -continue Coreg, added on ASA 81 mg daily, added on statin high intensity (10) Nonischemic cardiomyopathy: as above (11) DVT prophylaxis: Heparin SQ, MARY hose were provided Disposition-stable for discharge to home Total Time Total Time Spent Total Time Spent (In Minutes): Greater than 30 minutes Total Time Includes: Examination of the Patient, Discharge Planning, Medication Reconciliation and Communication With Other Providers (Cardiology) Discharge Plan Discharge Items Patient Disposition: Home - Self-Care Reason For Visit: LE EDEMA, DYSPNEA, PLEURAL EFUSION Discharge Diagnosis: Acute systolic CHF Condition: Good Discharge Goals: Diagnostic testing and Improve disease control Activity: As commented below Lifting: No more than 25 pounds Bathing: No limitations Exercise/Sports: Wait until after follow-up appointment Exercise Comment: You may walk and do usual activities of daily living Driving/Machine Use Comment: 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 Non-emergency contact: Primary Care Provider and Flying Ii Instructor Call non-emergency contact if: you have any medication questions and your symptoms worsen Follow-up/Referrals: Marcelino Kay CRNP [Primary Care Provider] - 10/31/18 7:50 am (Please, follow up at [facility] [place] Office with Marcelino GONZALES on TuesdayOctober 31 at 8:00 am (arrive 7:50 am). *You will receive a new patient packet in the mail. Please, complete it and bring it with you to the appointment. The office is located next to [address]. If you need to change the appointment, call the office at [phone]. ) Julia Myers PA-C [Physician [facility]] - 10/31/18 2:00 pm (Please, follow up at [facility] Cardiology Office / CHF Clinic with Graciela Myers PA-C on TuesdayOctober 31 at 2:00 pm. *The office is located in [address] of The [facility] building next to this hospital. If you need to change this appointment, call the office at [phone]. Congestive Heart Failure Program Appointment Information Early follow up is essential to managing your heart failure. An appointment has been scheduled for you with the [facility] Heart Failure Program within 7 days of discharge. Anticipate this visit to be 30-60 minutes long. Please expect a counter top maker phone call from one of our nurses approximately 48 hours from discharge. They will also be placing an order for lab work to be completed 1-2 days prior to your heart failure follow up appointment. Please be sure to have this done so we can go over the results when you come in. Office Location The cardiology office building is located in front of the hospital at [address] Bring the following with you to your follow-up doctor appointments: Please bring your daily weight log any discharge paperwork all of your medication bottles with you to this visit. ) Diet: Carb Consistent or DM2 and Low Sodium (2gm) Fluids: 1800ml (7 cups) Addtl Provider Instructions: You were admitted with congestive heart failure and had a lot of fluid removed with medication. Please continue on the new heart medicines and the lasix as prescribed. You were sent home wearing a Life Vest to protect you against sudden as your heart function is low. Please follow up with Cardiology as scheduled for you. Your diabetes is severely uncontrolled. Please follow up with your doctor to discuss affordable ways for you to better control your sugars. Eating a healthy diet low in carbohydrates is an excellent way to start. Call your Primary Care doctor if any of the following symptoms or problems start or get worse: * Shortness of breath or difficulty breathing * Wake up at night short of breath * Chest pain * Cough * Swelling of your hands, feet, or legs * More fatigued or tired with your normal activity * Palpitations - sudden fast heart beats WEIGHT * Weigh yourself every morning after using the bathroom. * Use the same scale. * Wear the same amount of clothing. * Write your weight down on a chart. * Call your Primary Care doctor if you gain more than 2-3 pounds in 1-2 days. MEDICATIONS * Use this discharge instruction sheet for medication instructions. * Take your medications at the time your doctor ordered. * Do not skip a dose of your medicines. * If you miss a dose of medicine, take it as soon as possible, but DO NOT DOUBLE A DOSE. * Read your medicine information when you get home. * Know all of the side effects of your medicine. If in doubt, ask your pharmacist * Call your Primary Care doctor's office if you have any side effects. * Be sure all of your doctors know what medicine and herbs you take (including cold, flu, and herbal medicine). Take the following with you to your follow-up doctor appointments: * Weight Chart * Medication List * List of questions Do not drink excessive alcohol, beer or wine. Prescriptions: New atorvastatin 40 mg Tablet 40 mg PO QAM Qty: 30 RF: 0 carvedilol 12.5 mg Tablet 12.5 mg PO BID Qty: 60 RF: 0 aspirin [Ecotrin Low Strength] 81 mg Tablet,Delayed Release (Dr/Ec) 81 mg PO QAM Qty: 30 RF: 0 potassium chloride 10 mEq capsule, extended release 10 meq PO BID Qty: 60 RF: 0 Continued simethicone [Gas-X Ultra-Strength] 180 mg Capsule 180 mg PO DAILY PRN (Reason: Gastric Reflux) RF: 0 lisinopril 20 mg Tablet 20 mg PO DAILY RF: 0 glipizide 10 mg Tablet 10 mg PO DAILY RF: 0 metformin 1,000 mg Tablet 1,000 mg PO DAILY RF: 0 cholecalciferol (vitamin D3) [Vitamin D3] 400 unit Tablet 400 unit PO DAILY RF: 0 Changed furosemide [Lasix] 40 mg Tablet 40 mg PO BID Qty: 60 RF: 0 Discontinued potassium aminobenzoate 500 mg Capsule 500 mg PO DAILY RF: 0 Stand-Alone Forms: [facility] Discharge Orders: Discharge Order (Routine); Ordered 10/25/18 Ordered By: Valentina Harrison Admission Data Admit Date/Time: 10/20/18 01:36 Attending Provider: Valentina Harrison Admit Provider: Alexandre Stanton Primary Care Provider: Marcelino Kay Other Providers: Shakir Garcia ; Neo Rey ; Octavio Cohn Service: Telemetry Other Interventions: Discharge Summary Assessment (RN) Last Done: 10/25/18 18:47 Pending Studies at Discharge: Yes Studies:: Serum immunofixation electrophoresis DC Date/Time DO NOT enter until pt leaves facility: 10/25/18 20:02
== END 2018-10-25 20:02 | disposition home or self-care (01) | DRG 286 ==
LOC: ED 20:57 → SUATTDRO 10-20 01:36 → 3W 10-20 01:36 → 2S 10-20 16:38

== ENCOUNTER 2025-05-01 22:36 | Observation (INO) ==
--- NOTE | 2025-05-01 23:18 | Emergency Department Note ---
Impression & Plan Ambulatory dysfunction, Weakness ED Provider Note CHIEF COMPLAINT: Intractable back pain HISTORY OF PRESENTING ILLNESS: Patient is a pleasant, 60-year-old male who arrives to the emergency department for evaluation of intractable low back pain, with bilateral lower extremity weakness. Patient reports history of lumbar spine issues, and he is currently receiving injections via pain management. He reports he has been evaluated by orthopedic spine, however states he asked to attempt other treatments prior to being a surgical candidate. He does report past medical history of type 2 diabetes. He states he is having loss of bladder over the last few days. He reports he is having to wear a diaper, which is new for him. He reports he does have full sensation of the bilateral lower extremities. REVIEW OF SYSTEMS: See HPI for pertinent positives and pertinent negatives. ALLERGIES: See below MEDICATIONS: See below PAST MEDICAL HISTORY: See below PHYSICAL EXAM: VITALS: Vitals are noted on the nurse's note and reviewed by myself. Vital signs stable. GENERAL: 60-year-old male, in no acute distress, nondiaphoretic, obese. SKIN: The skin was without rashes, erythema, edema, or bruising. HEART: Regular rate and rhythm without murmurs gallops or rubs. LUNGS: Clear to auscultation bilaterally without wheezes, rales or rhonchi. No retractions or accessory muscle use. ABDOMEN: Positive bowel sounds x 4. Soft, nontender, without masses or organomegaly. Lentz sign negative. No guarding or rebound tenderness. MUSCULOSKELETAL: BLE weakness with SLR, right greater than left. Sensation intact to dull and sharp, BLE. DP pulse intact BLE. NEURO: Patient was alert and oriented to person place and time. DIFFERENTIAL DIAGNOSIS: Musculoskeletal, disc herniation, fracture, metastatic disease, cord compression, discitis, sciatica, cauda equina, infection, aortic disease, renal colic, gastrointestinal, as well as other pathologies. ED COURSE AND MEDICAL DECISION MAKING: MEDICATIONS GIVEN: Dexamethasone 10 mg IV INTERPRETATION OF LABS: I interpreted the labs with full lab results as below in the lab section of this note. Pertinent lab results discussed in the MDM section below. INTERPRETATION OF IMAGING: Imaging studies were interpreted by myself and read by radiology as per the imaging section of this note. CHRONIC MEDICAL/SOCIAL CONDITIONS AFFECTING CARE: Lumbar spinal stenosis MDM SUMMARY: The patient is a pleasant, 60-year-old male who arrives to the emergency department for evaluation of the above-stated complaint. Saline lock was established, basic labs were obtained. CBC shows no leukocytosis, no anemia. CMP is unremarkable. Elevated BSG 228. Due to patient's complaint of loss of bladder, as well as bilateral lower extremity weakness, lumbar spine MRI imaging was obtained. MRI imaging shows diffuse disc bulging, from T10-S1 with moderate foraminal narrowing, compression of the adjoining nerve roots, and moderate spinal canal stenosis. Patient did not request pain medication during his stay. Patient is unable to ambulate, due to weakness. He will require admission for ambulatory dysfunction. Routine consult order was placed for orthopedic spine. Patient will be admitted to the [facility] service. Dr. Garcia agreed to evaluate and accept the patient under his services. Please refer to his documentation for further patient workup and care. DIAGNOSIS: Ambulatory dysfunction, weakness The chart was completed utilizing [employer] Speech voice recognition software. Grammatical errors, random word insertions, pronoun errors, and incomplete sentences are an occasional consequence of this system due to software limitations, ambient noise, and hardware issues. Any formal questions or concerns about the content, text, or information contained within the body of this dictation should be directly addressed to the provider for clarification. Past Med/Surg History Problem List (Updated 05/02/25 @ 06:34 by CHRISTIAN Keen) Weakness (Acute) Ambulatory dysfunction (Acute) Tachycardia Lumbar stenosis Intractable back pain Type 2 diabetes mellitus Lumbar stenosis with neurogenic claudication Bilateral knee pain Heart failure with improved ejection fraction (HFimpEF) Obesity Sensory neuropathy On statin therapy Congestive heart failure due to cardiomyopathy Nonischemic cardiomyopathy Diabetes (Chronic) Tobacco use CHF (congestive heart failure), NYHA class III CAD (coronary artery disease), [place] coronary artery (Chronic) Fatty liver (Chronic) Hypertension (Chronic) Erectile dysfunction Medical History History of cellulitis Arm injury Cataract, left eye Surgical History History of hernia repair (~1991) History of thoracentesis (10/20/18) by Dr. Rey History of cardiac catheterization (10/23/18) [facility] History of cholecystectomy (~1991) Family History Father Diabetes Hypertension Pancreatic cancer Heart disease Prostate cancer Mother Hypertension Thyroid condition Grandfather (Paternal) Diabetes Cancer Denies family history of Colon cancer Ovarian cancer Myocardial infarction Breast cancer Social History Smoking Status: Current every day smoker Tobacco Type: Smokeless Tobacco (Dip or Chew) Second Hand Exposure: No; Do You Dip or Chew Tobacco: Yes; Hx Alcohol Use: No Hx Substance Use: No Preferred Language: Occitan Communication Ability: Effective Visual Impairment: No Limitations Hearing Ability: Normal Fraternity Adviser Required: No Beliefs That Will Affect Care: None marital status: Current Living Situation: Significant Other Current Living Situation Comment: lives with girlfriend current occupational status: employed 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 Feels Safe at Home: Yes Childhood Exposure to Second-Hand Smoke: No Diet: regular Diet Comment: regular caffeine: No during the past year weight has: remained stable Dental Care, Regularly: Yes Physical Activity Frequency: Does not Exercise Physical Activity Frequency Comment: limited by physical condition Seatbelt Use: always Sunscreen Use: No Assistive Devices: Glasses and Walker Allergies Allergies Allergy/AdvReac Type Severity Reaction Status Date / Time No Known Allergies Allergy Verified 05/02/25 01:44 Home Meds Home Medications Medication Instructions Recorded Confirmed vit C 50 mg-E 15 unit-zinc cit 4.5 1 tab PO DAILY 09/15/22 05/02/25 mg-lutein 2.5 mg-zeaxan chew tablet ([employer] [facility]) coenzyme Q10 100 mg capsule (Co 100 mg PO DAILY 11/13/24 05/02/25 Q-10) semaglutide 0.25 mg or 0.5 mg (2 0.25 mg subcut WK 05/02/25 05/02/25 mg/3 mL) subcutaneous pen injector (Ozempic) Previous Rx's Medication Instructions Recorded aspirin 81 mg tablet,delayed 81 mg PO QAM #30 tabs 10/25/18 release (Ecotrin Low Strength) metformin 500 mg tablet,extended 1,000 mg (2 x 500 mg) PO BID #360 05/09/24 release 24 hr tabs carvedilol 25 mg tablet 37.5 mg (1.5 x 25 mg) PO BID #270 06/11/24 tabs meloxicam 15 mg tablet 15 mg PO DAILY #90 tabs 11/13/24 amlodipine 5 mg tablet 5 mg PO DAILY #90 tabs 12/05/24 lisinopril 20 mg tablet 20 mg PO QAM #90 tabs 12/25/24 glimepiride 4 mg tablet 4 mg PO BID #180 tabs 01/23/25 insulin glargine 100 unit/mL (3 30 unit (0.3 mL) subcut QAM #15 mL 02/27/25 mL) subcutaneous pen (Lantus Solostar U-100 Insulin) pen needle, diabetic 31 gauge x #100 ea 02/27/2506/23" (Comfort EZ Pen Weiser) doxycycline hyclate 100 mg tablet 100 mg PO BID 20 days #40 tabs 04/09/25 hydrochlorothiazide 12.5 mg tablet 12.5 mg PO DAILY #90 tabs 04/09/25 Results & Data (ED) Vital Signs Vital Signs - 24 hr 05/01/25 22:40 05/01/25 22:49 05/02/25 01:12 Temperature 36.8 C Temperature Source Oral Pulse Rate 91 H 92 H Respiratory Rate 20 20 Respiratory Effort / Characteristics Non-Labored Spontaneous Non-Labored Respiratory Depth Normal Normal Respiratory Pattern Regular Blood Pressure 156/95 H Blood Pressure [Right Arm] 116/91 Blood Pressure Mean 115 Blood Pressure Mean [Right Arm] 99 Blood Pressure Position [Right Arm] Lying Pulse Oximetry 96 93 Oxygen Delivery Method Room Air Room Air Sepsis Recent Fever Within 48 Hours No Sepsis New/Unexplained Change in Mental Status N/A Sepsis Action Taken by Nursing No Action Required 05/02/25 02:47 Temperature Temperature Source Pulse Rate 103 H Respiratory Rate Respiratory Effort / Characteristics Respiratory Depth Respiratory Pattern Blood Pressure Blood Pressure [Right Arm] Blood Pressure Mean Blood Pressure Mean [Right Arm] Blood Pressure Position [Right Arm] Pulse Oximetry Oxygen Delivery Method Sepsis Recent Fever Within 48 Hours Sepsis New/Unexplained Change in Mental Status Sepsis Action Taken by Assisted Medications Current Medication List: was personally reviewed by me Laboratory Data Attestation: I reviewed the patient's lab results. 05/01/25 22:42 05/01/25 22:42 Lab Results 05/01/25 Range/Units 22:42 WBC 9.66 (4.8-10.8) K/ul RBC 4.78 (4.70-6.10) M/uL Hgb 14.0 (14.0-18.0) g/dL Hct 42.1 (42.0-52.0) % MCV 88.1 (80.0-100.0) fL MCH 29.3 (25.0-34.0) pg MCHC 33.3 (32.0-36.0) g/dL RDW Std Deviation 42.4 (36.4-46.3) fL RDW Coeff of [place] 13.2 (11.5-14.5) % Plt Count 184 (130-400) K/uL MPV 10.0 (9.4-12.4) fL Immature Gran % (Auto) 0.3 % Neut % (Auto) 70.9 % Lymph % (Auto) 18.1 % Summers % (Auto) 7.9 % Eos % (Auto) 2.3 % Baso % (Auto) 0.5 % Neut # (Auto) 6.85 H (1.40-6.50) K/uL Lymph # (Auto) 1.75 (1.20-3.40) K/uL Summers # (Auto) 0.76 H (0.11-0.59) K/uL Eos # (Auto) 0.22 (0.00-0.50) K/uL Baso # (Auto) 0.05 (0.00-0.20) K/uL Immature Gran # (Auto) 0.03 (0.01-0.20) K/uL Sodium 139 (136-145) mmol/L Potassium 3.6 (3.5-5.1) mmol/L Chloride 102 (98-107) mmol/L Carbon Dioxide 30 (21-32) mmol/L Anion Gap 7 (3-11) BUN 21 (6-23) mg/dl Creatinine 1.14 (0.6-1.4) mg/dl Est Cr Clr Drug Dosing 95.2 ml/min eGFR 74.55 BUN/Creatinine Ratio 18.4 (10-20) Glucose 228 H (70-99(Fasting)) mg/dl Calcium 9.9 (8.6-10.3) mg/dl Total Bilirubin 0.5 (0.2-1.0) mg/dl AST 14 (13-39) U/L ALT 10 (7-52) U/L Alkaline Phosphatase 90 (34-104) U/L Total Protein 7.3 (6.0-8.3) gm/dl Albumin 3.8 (3.4-5.0) gm/dl Globulin 3.5 (2.5-4.0) gm/dl Albumin/Globulin Ratio 1.1 (0.9-2) TSH 1.380 (0.300-4.500) uIu/ml Administered Medications Acetaminophen (Acetaminophen 500 Mg Tab) 1,000 mg PO Q8H PRN PRN Reason: Pain & Pre PT Stop: 06/01/25 03:24 Last Admin: 05/02/25 06:06 Dose: 1,000 mg Documented By: ALMA Discontinued Medications Dexamethasone Sodium Phosphate (DexamethasonePf 10 Mg/Ml Vial) 10 mg IV NOW ONE Stop: 05/02/25 03:12 Last Admin: 05/02/25 03:24 Dose: 10 mg Documented By: [email or web address] Lidocaine (Lidocaine 5% 1 Patch) 1 patch TD NOW STA Stop: 05/02/25 03:26 Last Admin: 05/02/25 04:20 Dose: 1 patch Documented By: maggie Polyethylene Glycol (Polyethylene (Miralax) 17 Gm Pack) 17 gm PO NOW STA Stop: 05/02/25 03:44 Last Admin: 05/02/25 06:06 Dose: 17 gm Documented By: ALMA Imaging Data Attestation: I personally reviewed and interpreted this imaging study as follows: Radiologist's Impression: Lumbar Spine MRI 05/01/25 23:35 EXAM: MR lumbar spine wo con CLINICAL HISTORY: BLE weakness, saddle anesthesia TECHNIQUE: Different pulse sequences were performed in different planes for the lumbar spine without contrast. Images were sent through PACS for diagnostic interpretation. COMPARISON: 01/09/2025. FINDINGS: Vertebral Alignment: The images are significantly degraded by motion artifacts. There is relative straightening of the lumbar curvature, denoting spasm of the paravertebral muscles. There is mild retrolisthesis of L5. There is disc desiccation of the scanned intervertebral discs, with multilevel Schmorl's nodes, endplate osteophyte formation, thickening of the ligamentum flavum, and bony hypertrophy of the facet joints. There are no lytic or sclerotic lesions. [id number] analysis: T10-11 and T11-12: Posterior asymmetrical disc bulge (3 mm), more inclined to the left side. This is causing indentation of the subarachnoid space and mild to moderate narrowing of the left exiting foramina, with impingement of the exiting nerve roots. L1-2: Diffuse disc bulge (3.5 mm) causing bilateral moderate exit foraminal narrowing, with compression of the adjoining nerve roots and moderate spinal canal stenosis. L2-3: Diffuse disc bulge (4 mm) causing bilateral moderate exit foraminal narrowing, with compression of the adjoining nerve roots and moderate spinal canal stenosis. L3-4: Diffuse disc bulge (4.5 mm) causing bilateral moderate exit foraminal narrowing, with compression of the adjoining nerve roots and moderate spinal canal stenosis. L4-5: Diffuse disc bulge (4.5 mm) causing bilateral moderate to severe exit foraminal narrowing, with compression of the adjoining nerve roots and moderate to severe spinal canal stenosis. L5-S1: Disc osteophyte complex bulge (4.5 mm) causing bilateral mild to moderate exit foraminal narrowing, with compression of the adjoining nerve roots and mild spinal canal stenosis. Spinal Cord and Nerve Roots: The conus medullaris terminates at the L1 level without abnormality. The nerve roots appear unremarkable bilaterally. The lower thoracic spinal cord, conus medullaris, and cauda equina nerve roots are unremarkable. Soft Tissues: The paraspinal soft tissues appear normal, without evidence of abnormal signal intensity or mass lesions. There is deep-seated subcutaneous soft tissue edema in the lower aspect of the back. IMPRESSION: The images are significantly degraded by motion artifacts. There is relative straightening of the lumbar curvature, denoting spasm of the paravertebral muscles. There is mild retrolisthesis of L5. Spondylotic degenerative changes with multilevel disc disease resulting in spinal canal and exit foraminal stenosis as described. There are no significant interval changes as compared with the prior MRI study. Electronically signed by Dimitris Alas 05-02-2025 02:04 AM Discharge Plan Visit Data Chief Complaint: Back Injury/Pain Stated Complaint: BACK PAIN ED Provider: Giles Lyons ED Midlevel Provider: Delphine Wilson Discharge Problem: Ambulatory dysfunction, Weakness Patient Disposition: Admitted As Inpatient Condition: Fair Discharge Instructions Interventions: ED Discharge Assessment Last Done: 05/02/25 04:32
[2025-05-02 00:05] LABS: Hematocrit (blood only) 42.1 % (42.0-52.0); Hemoglobin 14.0 g/dL (14.0-18.0); Immature Granulocytes # (auto) 0.03 K/uL (0.01-0.20); Immature Granulocytes % (auto) 0.3 %; Mean Corpuscular Hemoglobin 29.3 pg (25.0-34.0); Mean Corpuscular Volume 88.1 fL (80.0-100.0); Platelet Count 184 K/uL (130-400); RDW Standard Deviation 42.4 fL (36.4-46.3); Red Blood Count 4.78 M/uL (4.70-6.10); White Blood Count 9.66 K/ul (4.8-10.8)
[2025-05-02 00:10] LABS: Alanine Aminotransferase 10.0 U/L (7-52); Albumin Globulin Ratio 1.1 (0.9-2); Albumin Level 3.8 gm/dl (3.4-5.0); Alkaline Phosphatase 90.0 U/L (34-104); Anion Gap 7.0 (3-11); Bilirubin,Total 0.5 mg/dl (0.2-1.0); Blood Urea Nitrogen 21.0 mg/dl (6-23); Calcium 9.9 mg/dl (8.6-10.3); Carbon Dioxide 30.0 mmol/L (21-32); Chloride 102.0 mmol/L (98-107); Creatinine Clr Calc Pharmacy 95.2 ml/min; Globulin 3.5 gm/dl (2.5-4.0); Glucose 228.0 mg/dl (70-99(Fasting)); Potassium 3.6 mmol/L (3.5-5.1); Sodium 139.0 mmol/L (136-145); Total Protein 7.3 gm/dl (6.0-8.3)
--- NOTE | 2025-05-02 02:04 | Magnetic Resonance Report ---
EXAM: MR lumbar spine wo con CLINICAL HISTORY: BLE weakness, saddle anesthesia TECHNIQUE: Different pulse sequences were performed in different planes for the lumbar spine without contrast. Images were sent through PACS for diagnostic interpretation. COMPARISON: 01/09/2025. FINDINGS: Vertebral Alignment: The images are significantly degraded by motion artifacts. There is relative straightening of the lumbar curvature, denoting spasm of the paravertebral muscles. There is mild retrolisthesis of L5. There is disc desiccation of the scanned intervertebral discs, with multilevel Schmorl's nodes, endplate osteophyte formation, thickening of the ligamentum flavum, and bony hypertrophy of the facet joints. There are no lytic or sclerotic lesions. [id number] analysis: T10-11 and T11-12: Posterior asymmetrical disc bulge (3 mm), more inclined to the left side. This is causing indentation of the subarachnoid space and mild to moderate narrowing of the left exiting foramina, with impingement of the exiting nerve roots. L1-2: Diffuse disc bulge (3.5 mm) causing bilateral moderate exit foraminal narrowing, with compression of the adjoining nerve roots and moderate spinal canal stenosis. L2-3: Diffuse disc bulge (4 mm) causing bilateral moderate exit foraminal narrowing, with compression of the adjoining nerve roots and moderate spinal canal stenosis. L3-4: Diffuse disc bulge (4.5 mm) causing bilateral moderate exit foraminal narrowing, with compression of the adjoining nerve roots and moderate spinal canal stenosis. L4-5: Diffuse disc bulge (4.5 mm) causing bilateral moderate to severe exit foraminal narrowing, with compression of the adjoining nerve roots and moderate to severe spinal canal stenosis. L5-S1: Disc osteophyte complex bulge (4.5 mm) causing bilateral mild to moderate exit foraminal narrowing, with compression of the adjoining nerve roots and mild spinal canal stenosis. Spinal Cord and Nerve Roots: The conus medullaris terminates at the L1 level without abnormality. The nerve roots appear unremarkable bilaterally. The lower thoracic spinal cord, conus medullaris, and cauda equina nerve roots are unremarkable. Soft Tissues: The paraspinal soft tissues appear normal, without evidence of abnormal signal intensity or mass lesions. There is deep-seated subcutaneous soft tissue edema in the lower aspect of the back. IMPRESSION: The images are significantly degraded by motion artifacts. There is relative straightening of the lumbar curvature, denoting spasm of the paravertebral muscles. There is mild retrolisthesis of L5. Spondylotic degenerative changes with multilevel disc disease resulting in spinal canal and exit foraminal stenosis as described. There are no significant interval changes as compared with the prior MRI study. Electronically signed by Dimitris Alas 05-02-2025 02:04 AM
--- NOTE | 2025-05-02 02:56 | History & Physical Report ---
Date of Service May 02, 2025 Assessment & Plan (1) Intractable back pain: (2) Lumbar stenosis: (3) Tachycardia: (4) Type 2 diabetes mellitus: Plan 60-year-old male PMHx HTN, fatty liver, CAD, HFimpEF, T2DM, and lumbar stenosis presenting for back pain + weakness x 5 days. Evaluation is with grossly unremarkable CBC + CMP with exception of elevated glucose. MRI of the lumbar spine does suggest muscle spasm, retrolisthesis, and degenerative changes. Admission for intractable back pain. 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 Ongoing pain since September, worsening weakness. Does feel that his knees are weak causing him to stumble, uses walker at times. Received Dexamethasone in ED. - CBC + CMP grossly unremarkable - Lumbar spine MRI suggestive of spasm, retrolisthesis, and degenerative changes without much change from prior MRI - Fall precautions - Lidocaine patch prn - Zofran prn N/V - Acetaminophen + IBU alternating -- requesting no advancement to opioids as he is prone to randomized drug screening for work - Ortho consulted - appreciate input + recs - PT/OT consulted - appreciate assistance #Tachycardic No source of infection, without chest pain or palpitations. History CAD, HF. No SOB. Ranging ~ 90s-110s. ? related to pain - Labs overall unremarkable; TSH pending - EKG pending - CXR pending - Monitor on tele #T2DM H/o T2DM. At home regimen includes glimepiride, metformin, Ozempic weekly, and glargine 30U am. - Glucose on arrival 228; Most recent A1c 09/2024 @ 13.1% - Hold home regimen - SSI with target BSG range 110-150mg/dL, CF 20, carb ratio 5 - Lantus 20U BID - Adjust regimen as needed #HTN- Amlodipine, carvedilol, HCTZ, lisinopril - continue #CAD- ASA - continue Dispo: Obs, med/sx VTE Prophylaxis: SCDs This document was dictated utilizing BESOS. Please excuse any grammatical errors that may be secondary to use of this software. Admission and Anticipated Discharge Date Admission Date: 05/02/2025 History of Present Illness Chief Complaint: Back pain Primary Care Provider: CHRISTIAN Goldman 60-year-old male PMHx HTN, fatty liver, CAD, HFimpEF, T2DM, and lumbar stenosis presenting for back pain + weakness x 5 days. Reports history of herniated discs in the past. Patient reports that since September 2024 he has had worsening pain in his lower back, mainly radiating to the right side but occasionally just across his entire back. 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 He reports that he knows that his discs are rubbing on each other per report. He states that he feels his knees cannot hold him up and that this is been going on "a while." He occasionally will have falls because he feels that he is legs are giving out on him. He does use a walker on occasion and attempts to try to hold himself up. 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 He also has had difficulties over the past 7 to 8 days with constipation, stating he has not had normal bowel movement without any days. At present, his pain is located on the right side, described as sharp and rated a 5-6 out of 10 on the pain scale. It is managed well with Tylenol. Without numbness or tingling, no saddle anesthesia. Denies chest pain, palpitations, SOB, abdominal pain, N/V/D, fever/chills, URI symptoms, LUTS, or syncope. Patient follows with pain management, scheduled to have injections in his back in approximately 1 week. Also has been seen by Dr. Guan with orthopedics in the past. 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 ED evaluation reveals grossly WNL CBC; CMP glucose 228, otherwise unremarkable; lumbar spine MRI straightening lumbar curvature (spasm), mild retrolisthesis L5, spondylotic degenerative changes in spinal canal/foraminal stenosis, no significant change from prior MRI. Please see Dr. Garcia's attestation for adjustments/additions to treatment plan. Allergies Allergy/AdvReac Type Severity Reaction Status Date / Time No Known Allergies Allergy Verified 05/02/25 01:44 Home Medications Medication Instructions Recorded Confirmed Type aspirin 81 mg tablet,delayed 81 mg PO QAM #30 tabs 10/25/18 05/02/25 Rx release (Ecotrin Low Strength) vit C 50 mg-E 15 unit-zinc cit 4.5 1 tab PO DAILY 09/15/22 05/02/25 History mg-lutein 2.5 mg-zeaxan chew tablet ([facility]) metformin 500 mg tablet,extended 1,000 mg (2 x 500 mg) PO BID #360 05/09/24 05/02/25 Rx release 24 hr tabs carvedilol 25 mg tablet 37.5 mg (1.5 x 25 mg) PO BID #270 06/11/24 05/02/25 Rx tabs coenzyme Q10 100 mg capsule (Co 100 mg PO DAILY 11/13/24 05/02/25 History Q-10) meloxicam 15 mg tablet 15 mg PO DAILY #90 tabs 11/13/24 05/02/25 Rx amlodipine 5 mg tablet 5 mg PO DAILY #90 tabs 12/05/24 05/02/25 Rx lisinopril 20 mg tablet 20 mg PO QAM #90 tabs 12/25/24 05/02/25 Rx glimepiride 4 mg tablet 4 mg PO BID #180 tabs 01/23/25 05/02/25 Rx insulin glargine 100 unit/mL (3 30 unit (0.3 mL) subcut QAM #15 mL 02/27/25 05/02/25 Rx mL) subcutaneous pen (Lantus Solostar U-100 Insulin) pen needle, diabetic 31 gauge x #100 ea 02/27/25 04/09/25 Rx 1/4" (Comfort EZ Pen [place]) doxycycline hyclate 100 mg tablet 100 mg PO BID 20 days #40 tabs 04/09/25 05/02/25 Rx hydrochlorothiazide 12.5 mg tablet 12.5 mg PO DAILY #90 tabs 04/09/25 05/02/25 Rx semaglutide 0.25 mg or 0.5 mg (2 0.25 mg subcut WK 05/02/25 05/02/25 History mg/3 mL) subcutaneous pen injector (Ozempic) prednisone 10 mg tablet 10 mg PO DIRECTED #30 tabs 05/03/25 Rx Past Med/Surg History Problem List (Updated 05/02/25 @ 10:22 by Don Guan DO) Multilevel lumbosacral spondylosis with radiculopathy Weakness (Acute) Ambulatory dysfunction (Acute) Tachycardia Lumbar stenosis Intractable back pain Type 2 diabetes mellitus Lumbar stenosis with neurogenic claudication Bilateral knee pain Heart failure with improved ejection fraction (HFimpEF) Obesity Sensory neuropathy On statin therapy Congestive heart failure due to cardiomyopathy Nonischemic cardiomyopathy Diabetes (Chronic) Tobacco use CHF (congestive heart failure), NYHA class III CAD (coronary artery disease), kaibab coronary artery (Chronic) Fatty liver (Chronic) Hypertension (Chronic) Erectile dysfunction Medical History History of cellulitis Arm injury Cataract, left eye Surgical History History of hernia repair (~1991) History of thoracentesis (10/20/18) by Dr. Rey History of cardiac catheterization (10/23/18) [facility] History of cholecystectomy (~1991) Family History Father Diabetes Hypertension Pancreatic cancer Heart disease Prostate cancer Mother Hypertension Thyroid condition Grandfather (Paternal) Diabetes Cancer Denies family history of Colon cancer Ovarian cancer Myocardial infarction Breast cancer Social History Smoking Status: Current every day smoker Tobacco Type: Smokeless Tobacco (Dip or Chew) Second Hand Exposure: No; Do You Dip or Chew Tobacco: Yes; Hx Alcohol Use: No Hx Substance Use: No Preferred Language: Turkmen Communication Ability: Effective Visual Impairment: No Limitations Hearing Ability: Normal Vehicle Maintenance Technician Required: No Beliefs That Will Affect Care: None marital status: Current Living Situation: Significant Other Current Living Situation Comment: lives with girlfriend current occupational status: employed 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 Feels Safe at Home: Yes Childhood Exposure to Second-Hand Smoke: No Diet: regular Diet Comment: regular caffeine: No during the past year weight has: remained stable Dental Care, Regularly: Yes Physical Activity Frequency: Does not Exercise Physical Activity Frequency Comment: limited by physical condition Seatbelt Use: always Sunscreen Use: No Assistive Devices: Walker Review of Systems Review of Systems: All systems reviewed & are unremarkable except as noted in Subjective Physical Exam Physical Exam: General: No acute distress Skin: Warm and dry Head: Normocephalic, atraumatic Eyes: PERRL, conjunctivae clear, sclera non-icteric ENT: External ear and ear canal without swelling; nose atraumatic; poor dentition, tongue normal appearance, pharynx normal Neck: Supple, no LAD Cardio: Tachycardic, regular rhythm, no M/G/R, S1 and S2 normal Resp: No respiratory distress, Lungs CTA in all lobes bilaterally, no wheezes, rales, or rhonchi Abdomen: Soft, symmetric, nontender; mass periumbilical region, s/p surgical intervention per patient; no hepatosplenomegaly; Bowel sounds normoactive MSK: No deformities; pulses palpable and equal; no edema; no neurodeficits peripherally; reflexes equal bilaterally for upper and lower extremities; negative straight leg raise bilaterally. Neuro: Awake, alert; Sensation intact bilaterally; CN grossly intact Psych: Appropriate mood and affect; good judgement and insight. Results & Data Results & Data Vital Signs (Past 12 Hours) Vital Signs Temp Pulse Resp BP BP Pulse Ox O2 Del Method 05/02/25 01:12 20 116/91 93 Room Air 05/01/25 22:49 92 H 05/01/25 22:40 36.8 C 91 H 20 156/95 H 96 Room Air Laboratory Results 05/01/25 22:42 WBC 9.66 RBC 4.78 Hgb 14.0 Hct 42.1 MCV 88.1 MCH 29.3 MCHC 33.3 RDW Std Deviation 42.4 RDW Coeff of [place] 13.2 Plt Count 184 MPV 10.0 Immature Gran % (Auto) 0.3 Neut % (Auto) 70.9 Lymph % (Auto) 18.1 [place] % (Auto) 7.9 Eos % (Auto) 2.3 Baso % (Auto) 0.5 Neut # (Auto) 6.85 H Lymph # (Auto) 1.75 [place] # (Auto) 0.76 H Eos # (Auto) 0.22 Baso # (Auto) 0.05 Immature Gran # (Auto) 0.03 Sodium 139 Potassium 3.6 Chloride 102 Carbon Dioxide 30 Anion Gap 7 BUN 21 Creatinine 1.14 Est Cr Clr Drug Dosing 95.2 eGFR 74.55 BUN/Creatinine Ratio 18.4 Glucose 228 H Calcium 9.9 Total Bilirubin 0.5 AST 14 ALT 10 Alkaline Phosphatase 90 Total Protein 7.3 Albumin 3.8 Globulin 3.5 Albumin/Globulin Ratio 1.1 Diagnostic Findings Lumbar Spine MRI 05/01/25 23:35 EXAM: MR lumbar spine wo con CLINICAL HISTORY: BLE weakness, saddle anesthesia TECHNIQUE: Different pulse sequences were performed in different planes for the lumbar spine without contrast. Images were sent through PACS for diagnostic interpretation. COMPARISON: 01/09/2025. FINDINGS: Vertebral Alignment: The images are significantly degraded by motion artifacts. There is relative straightening of the lumbar curvature, denoting spasm of the paravertebral muscles. There is mild retrolisthesis of L5. There is disc desiccation of the scanned intervertebral discs, with multilevel Schmorl's nodes, endplate osteophyte formation, thickening of the ligamentum flavum, and bony hypertrophy of the facet joints. There are no lytic or sclerotic lesions. [id number] analysis: T10-11 and T11-12: Posterior asymmetrical disc bulge (3 mm), more inclined to the left side. This is causing indentation of the subarachnoid space and mild to moderate narrowing of the left exiting foramina, with impingement of the exiting nerve roots. L1-2: Diffuse disc bulge (3.5 mm) causing bilateral moderate exit foraminal narrowing, with compression of the adjoining nerve roots and moderate spinal canal stenosis. L2-3: Diffuse disc bulge (4 mm) causing bilateral moderate exit foraminal narrowing, with compression of the adjoining nerve roots and moderate spinal canal stenosis. L3-4: Diffuse disc bulge (4.5 mm) causing bilateral moderate exit foraminal narrowing, with compression of the adjoining nerve roots and moderate spinal canal stenosis. L4-5: Diffuse disc bulge (4.5 mm) causing bilateral moderate to severe exit foraminal narrowing, with compression of the adjoining nerve roots and moderate to severe spinal canal stenosis. L5-S1: Disc osteophyte complex bulge (4.5 mm) causing bilateral mild to moderate exit foraminal narrowing, with compression of the adjoining nerve roots and mild spinal canal stenosis. Spinal Cord and Nerve Roots: The conus medullaris terminates at the L1 level without abnormality. The nerve roots appear unremarkable bilaterally. The lower thoracic spinal cord, conus medullaris, and cauda equina nerve roots are unremarkable. Soft Tissues: The paraspinal soft tissues appear normal, without evidence of abnormal signal intensity or mass lesions. There is deep-seated subcutaneous soft tissue edema in the lower aspect of the back. IMPRESSION: The images are significantly degraded by motion artifacts. There is relative straightening of the lumbar curvature, denoting spasm of the paravertebral muscles. There is mild retrolisthesis of L5. Spondylotic degenerative changes with multilevel disc disease resulting in spinal canal and exit foraminal stenosis as described. There are no significant interval changes as compared with the prior MRI study. Electronically signed by Dimitris Alas 05-02-2025 02:04 AM Medications Administered Dexamethasone 10 mg IV Code Status & VTE Plan Code Status Full Supervising Physician Co-Signing Physician Notes Attending addendum: I have physically seen this patient, have supervised the DEONNA's activities, and agree with the H&P unless as otherwise noted. Assessment and Plan: The patient is a 60-year-old male with past medical history including hypertension, fatty liver, CAD, HFimpEF, diabetes mellitus type 2, and lumbar stenosis. He presents to the emergency department with complaint of back pain and weakness over the past 5 days. MRI performed in the ED of the lumbar spine suggest muscle spasm, retrolisthesis, and degenerative changes. [facility]. Intractable back pain/lumbar spinal stenosis- Worsening pain over the past 5 days. Pain has been ongoing since September Progressive weakness per patient Presently using walker at home intermittently. Status post dexamethasone 10 mg IV in ED Fall precautions Lidocaine patch Zofran 4 mg IV every 6 hours as needed Alternating acetaminophen and ibuprofen as noted Consult orthopedic spine surgery Consult PT/OT Hypertension/tachycardia/CAD- Continue carvedilol, amlodipine, HCTZ, aspirin, and lisinopril Replace potassium, check magnesium and replace as needed Diabetes mellitus- Lantus 20 units subcu twice daily Place on Accu-Cheks with NovoLog SSI as stated. Remaining orders and notations as noted PG Care Time/CCT Total # of Minutes Spent Total Time Spent with Patient: Total time spent is greater than 50% in coordination of care (as documented) at patient's floor/unit and/or counseling patient: Coding Level of Care Code 40968 INT INP/OBS CARE 3/75MIN Diagnoses Intractable back pain M54.9 Lumbar stenosis M48.061 Tachycardia R00.0 Type 2 diabetes mellitus E11.9
[2025-05-02] MEDS: dexAMETHasone**PF** 10 MG/ML VIAL IV ONE (03:24)
[2025-05-02] MEDS: LIDOCAINE 5% 1 PATCH TD STA (04:20)
[2025-05-02 04:22] LABS: Thyroid Stimulating Hormone 1.38 uIu/ml (0.300-4.500)
--- NOTE | 2025-05-02 05:00 | XRay Report ---
EXAM: XR chest 1V portable CLINICAL HISTORY: Tachycardic, hypoxic rest TECHNIQUE: An X-ray image of the chest was obtained in the AP projection. 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 There is no evidence of consolidation, collapse, or focal opacities. No pulmonary nodules are identified. There is no evidence of pleural effusion or pleural thickening. Heart and Mediastinum: The heart size and shape are normal. There is no mediastinal widening or masses. No hilar or mediastinal lymphadenopathy is seen. Bony Thorax: The bony thorax appears intact without fractures or deformities. Soft Tissues: The soft tissues overlying the chest wall are unremarkable. IMPRESSION: Normal chest X-ray. No acute cardiopulmonary abnormalities are identified. No other new interval abnormality since the prior study. Electronically signed by Michael Jiang 05-02-2025 04:59 AM
[2025-05-02] MEDS ORDERED: MAGNESIUM HYDROXIDE SUSP 30 ML UDC PO PRN (05:21)
[2025-05-02] MEDS ORDERED: MELATONIN 3 MG TAB PO PRN (05:21)
[2025-05-02] MEDS ORDERED: DEXTROSE 50% 50 ML SYRINGE IV PRN (05:21)
[2025-05-02] MEDS ORDERED: GLUCOSE 40% GEL 15 GM TUBE PO PRN (05:21)
[2025-05-02] MEDS ORDERED: POLYETHYLENE (MIRALAX) 17 GM PACK PO PRN (05:21)
[2025-05-02] MEDS ORDERED: GLUCAGON FOR INJ 1 MG VIAL SQ PRN (05:21)
[2025-05-02] MEDS ORDERED: ONDANSETRON INJ 2 MG/ML 2 ML VIAL IV PRN (05:21)
[2025-05-02] MEDS ORDERED: GLUCOSE 10 TAB/TUBE PO PRN (05:21)
[2025-05-02] MEDS ORDERED: CARBOHYDRATES FOR HYPOGLYCEMIA PO PRN (05:21)
[2025-05-02] MEDS: ACETAMINOPHEN 500 MG TAB PO PRN (06:06)
[2025-05-02] MEDS: POLYETHYLENE (MIRALAX) 17 GM PACK PO STA (06:06)
[2025-05-02] MEDS: ASPIRIN 81 MG ECTAB PO SCH (08:09)
[2025-05-02] MEDS: hydroCHLOROthiazide 25 MG TAB PO SCH (08:10)
[2025-05-02] MEDS: INSULIN ASPART PER UNIT CHARGE SC SCH (08:59)
[2025-05-02] MEDS: LANTUS PER UNIT CHARGE SQ SCH (08:59)
--- NOTE | 2025-05-02 10:23 | Orthopedic Consultation ---
Date of Consultation May 02, 2025 Assessment & Plan (1) Multilevel lumbosacral spondylosis with radiculopathy: Assessment lumbosacral spondylosis with radiculopathy. Plan at this time the patient is scheduled for a lumbar injection next week. He is encouraged to continue with this appointment. Ultimately he would be a candidate for surgical intervention. He would need to be maximized medically this includes his diabetes and his A1c. Also weight loss would be encouraged particularly if he is initiating Ozempic. This would probably take several months for him to reach a level of acceptable surgical candidacy. History of Present Illness Reason for Consultation: Back and bilateral leg pain Attending Physician: John Billings MD History of Present Illness This is a 60-year-old male that has been seen in our office several months ago. He now presents to the hospital with back and right leg pain. He has a history of frequent falls secondary to leg weakness. He describes pain more in the right greater than left leg. It does extend down the leg below the knee into the calf. He is comfortable sitting. He states he is initiated medical care for his diabetes. This also includes the initiation of Ozempic. Allergies Allergy/AdvReac Type Severity Reaction Status Date / Time No Known Allergies Allergy Verified 05/02/25 01:44 Home Medications Medication Instructions Recorded Confirmed Type aspirin 81 mg tablet,delayed 81 mg PO QAM #30 tabs 10/25/18 05/02/25 Rx release (Ecotrin Low Strength) vit C 50 mg-E 15 unit-zinc cit 4.5 1 tab PO DAILY 09/15/22 05/02/25 History mg-lutein 2.5 mg-zeaxan chew tablet [facility]) metformin 500 mg tablet,extended 1,000 mg (2 x 500 mg) PO BID #360 05/09/24 05/02/25 Rx release 24 hr tabs carvedilol 25 mg tablet 37.5 mg (1.5 x 25 mg) PO BID #270 06/11/24 05/02/25 Rx tabs coenzyme Q10 100 mg capsule (Co 100 mg PO DAILY 11/13/24 05/02/25 History Q-10) meloxicam 15 mg tablet 15 mg PO DAILY #90 tabs 11/13/24 05/02/25 Rx amlodipine 5 mg tablet 5 mg PO DAILY #90 tabs 12/05/24 05/02/25 Rx lisinopril 20 mg tablet 20 mg PO QAM #90 tabs 12/25/24 05/02/25 Rx glimepiride 4 mg tablet 4 mg PO BID #180 tabs 01/23/25 05/02/25 Rx insulin glargine 100 unit/mL (3 30 unit (0.3 mL) subcut QAM #15 mL 02/27/25 05/02/25 Rx mL) subcutaneous pen (Lantus Solostar U-100 Insulin) pen needle, diabetic 31 gauge x #100 ea 02/27/25 04/09/25 Rx 1/4" (Comfort EZ Pen [place]) doxycycline hyclate 100 mg tablet 100 mg PO BID 20 days #40 tabs 04/09/25 05/02/25 Rx hydrochlorothiazide 12.5 mg tablet 12.5 mg PO DAILY #90 tabs 04/09/25 05/02/25 Rx semaglutide 0.25 mg or 0.5 mg (2 0.25 mg subcut WK 05/02/25 05/02/25 History mg/3 mL) subcutaneous pen injector (Ozempic) Patient History Medical History History of cellulitis Arm injury Cataract, left eye Surgical History History of hernia repair (~1991) History of thoracentesis (10/20/18) by Dr. Rey History of cardiac catheterization (10/23/18) [facility] History of cholecystectomy (~1991) Family History Father Diabetes Hypertension Pancreatic cancer Heart disease Prostate cancer Mother Hypertension Thyroid condition Grandfather (Paternal) Diabetes Cancer Denies family history of Colon cancer Ovarian cancer Myocardial infarction Breast cancer Social History Smoking Status: Current every day smoker Tobacco Type: Smokeless Tobacco (Dip or Chew) Second Hand Exposure: No; Do You Dip or Chew Tobacco: Yes; Hx Alcohol Use: No Hx Substance Use: No Preferred Language: Estonian Communication Ability: Effective Visual Impairment: No Limitations Hearing Ability: Normal Technology Administrator Required: No Beliefs That Will Affect Care: None marital status: Current Living Situation: Significant Other Current Living Situation Comment: lives with girlfriend current occupational status: employed 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 Has reasonable strength testing. He is working with physical therapy at this time. Results & Data Vital Signs (Past 12 Hours) Vital Signs Temp Pulse Pulse Resp BP BP BP 05/02/25 07:16 36.9 C 103 H 18 169/97 H 05/02/25 05:41 98 H 05/02/25 05:25 05/02/25 05:25 36.7 C 96 H 20 05/02/25 04:48 98 H 05/02/25 04:05 100 H 20 148/93 H 05/02/25 04:00 05/02/25 03:31 20 159/106 H 05/02/25 02:47 103 H 05/02/25 01:12 20 116/91 05/01/25 22:49 92 H 05/01/25 22:40 36.8 C 91 H 20 156/95 H Pulse Ox O2 Del Method O2 Flow Rate 05/02/25 07:16 91 Room Air 05/02/25 05:41 05/02/25 05:25 Room Air, Nasal Cannula 05/02/25 05:25 91 Room Air 05/02/25 04:48 05/02/25 04:05 93 Nasal Cannula 2 05/02/25 04:00 84 L Room Air 05/02/25 03:31 95 Room Air 05/02/25 02:47 05/02/25 01:12 93 Room Air 05/01/25 22:49 05/01/25 22:40 96 Room Air
[2025-05-02] MEDS: IBUPROFEN 600 MG TAB PO PRN (10:50)
--- NOTE | 2025-05-02 12:14 | Hospitalist Progress Note ---
Date of Service May 02, 2025 Assessment & Plan (1) Intractable back pain: (2) Lumbar stenosis: (3) Tachycardia: (4) Type 2 diabetes mellitus: Plan 60-year-old male PMHx HTN, fatty liver, CAD, HFimpEF, T2DM, and lumbar stenosis presenting for back pain + weakness x 5 days. Evaluation is with grossly unremarkable CBC + CMP with exception of elevated glucose. MRI of the lumbar spine does suggest muscle spasm, retrolisthesis, and degenerative changes. Admission for intractable back pain. 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 Ongoing pain since September, worsening weakness. Does feel that his knees are weak causing him to stumble, uses walker at times. CBC/CMP stable. Lumbar spine MRI: relative straightening of lumbar curvature, denoting spasm of paravertebral muscles. 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 no significant interval changes compared to previous MRI (12/2024) Ortho cc: recommending following up w/ pain management for injection. Is surgical candidate but would require lifestyle modifications including tighter control on BG + weight loss prior to surgery. Touched base w/ pain management 05/02 --> recommending keeping injection as scheduled. IV Solu-medrol 40mg BID pt would prefer no narcotics as he is prone to randomized drug screening for work --> continue Tylenol/Ibuprofen prn. PT/OT consulted, recommending rehab on discharge. #Tachycardic No source of infection, without chest pain or palpitations. History CAD, HF. No SOB. Ranging ~ 90s-110s. ? related to pain Labs overall unremarkable; TSH WNL EKG normal sinus rhythm w/ occasional PVCs CXR negative #T2DM H/o T2DM. At home regimen includes glimepiride, metformin, Ozempic weekly, and glargine 30U am. (hold home regimen) Glucose on arrival 228; Most recent A1c 09/2024 @ 13.1% SSI with target BSG range 110-150mg/dL, CF 20, carb ratio 5 Lantus 20U BID Adjust regimen as needed Update A1c in AM #HTN- Amlodipine, carvedilol, HCTZ, lisinopril - continue #CAD- ASA - continue Dispo: Obs, med/sx VTE Prophylaxis: SCDs Admission and Anticipated Discharge Date Admission Date: May 02, 2025 Supervising Physician Co-Signing Physician Notes The patient was not seen by me. The chart was reviewed. Case discussed with SONIA Rivera. Agree with assessment and plan Subjective Jorge was seen & examined this morning. He states that his pain has improved since yesterday. States he was able to walk minimally with therapy today. He does report he recently responded well to steroids. He has an upcoming injection w/ pain management next week. Physical Exam Physical Exam: General: NAD, VS: BP 177/93; P99; R18; T36.5C Resp: normal respiratory effort Extremities:edema Neuro: A&O x3, Skin: intact, no lesions noted Results & Data Results & Data Vital Signs (Past 12 Hours) Vital Signs Temp Pulse Pulse Resp BP BP Pulse Ox 05/02/25 11:08 36.9 C 98 H 18 153/98 H 97 05/02/25 07:16 36.9 C 103 H 18 169/97 H 91 05/02/25 05:41 98 H 05/02/25 05:25 05/02/25 05:25 36.7 C 96 H 20 91 05/02/25 04:48 98 H 05/02/25 04:05 100 H 20 148/93 H 93 05/02/25 04:00 84 L 05/02/25 03:31 20 159/106 H 95 05/02/25 02:47 103 H 05/02/25 01:12 20 116/91 93 O2 Del Method O2 Flow Rate 05/02/25 11:08 Room Air 05/02/25 07:16 Room Air 05/02/25 05:41 05/02/25 05:25 Room Air, Nasal Cannula 05/02/25 05:25 Room Air 05/02/25 04:48 05/02/25 04:05 Nasal Cannula 2 05/02/25 04:00 Room Air 05/02/25 03:31 Room Air 05/02/25 02:47 05/02/25 01:12 Room Air PG Care Time/CCT Total # of Minutes Spent Total Time Spent with Patient: Total time spent is greater than 50% in coordination of care (as documented) at patient's floor/unit and/or counseling patient: Coding Level of Care Code 69670 SUB INP/OBS CARE 235MIN Diagnoses Intractable back pain M54.9 Lumbar stenosis M48.061 Tachycardia R00.0 Type 2 diabetes mellitus E11.9
[2025-05-02] MEDS: REMOVE LIDODERM PATCH ONE (12:22)
[2025-05-02 15:18] LABS: Appearance Urine Clear (Clear); Bacteria Urine Automated None Seen (None Seen); Cast Urine Automated 0-2 /lpf (0-2); Epithelial Cell Urine Auto 0-2 /hpf (0-2); Glucose Urine UA 1+ (Negative); RBC Urine Automated 0-2 /hpf (0-2); WBC Urine Automated 0-5 /hpf (0-5)
[2025-05-03 06:17] LABS: Hematocrit (blood only) 37.1 % (42.0-52.0); Hemoglobin 13.3 g/dL (14.0-18.0); Mean Corpuscular Hemoglobin 30.6 pg (25.0-34.0); Mean Corpuscular Volume 85.5 fL (80.0-100.0); Platelet Count 179 K/uL (130-400); RDW Standard Deviation 40.1 fL (36.4-46.3); Red Blood Count 4.34 M/uL (4.70-6.10); White Blood Count 13.56 K/ul (4.8-10.8)
[2025-05-03 06:39] LABS: Anion Gap 9.0 (3-11); Blood Urea Nitrogen 25.0 mg/dl (6-23); Calcium 9.9 mg/dl (8.6-10.3); Carbon Dioxide 25.0 mmol/L (21-32); Chloride 105.0 mmol/L (98-107); Creatinine Clr Calc Pharmacy 119.9 ml/min; Glucose 250.0 mg/dl (70-99(Fasting)); Potassium 3.6 mmol/L (3.5-5.1); Sodium 139.0 mmol/L (136-145)
[2025-05-03 07:39] LABS: Hemoglobin A1C 10.7 % (4.5-5.6)
--- NOTE | 2025-05-03 09:42 | Electrocardiogram Report ---
Test Reason : Blood Pressure : */* mmHG Vent. Rate : 95 BPM Atrial Rate : 95 BPM P-R Int : 170 ms QRS Dur : 94 ms QT Int : 362 ms P-R-T Axes : 34 -45 75 degrees QTcB Int : 454 ms Sinus rhythm with occasional Premature ventricular complexes Left axis deviation Incomplete right bundle branch block Possible Anteroseptal infarct (cited on or before 19-Oct-2018) Abnormal ECG When compared with ECG of 23-Oct-2018 18:51, Premature ventricular complexes are now Present Confirmed by Octavio Cohn ([id number]) on 05/03/2025 9:42:08 AM Referred By: REFERRED SELF Confirmed By: Octavio Cohn
[2025-05-03 11:13] VITALS: PULSE 86; RESP 18; TEMP 97.9; O2SAT 96
--- NOTE | 2025-05-03 11:13 | Discharge Summary ---
Discharge Summary Date of Service May 03, 2025 Principal Dx & Hospital Course #1 = Principal Diagnosis (1) Intractable back pain: (2) Lumbar stenosis: (3) Tachycardia: (4) Type 2 diabetes mellitus: Plan 60-year-old male PMHx HTN, fatty liver, CAD, HFimpEF, T2DM, and lumbar stenosis presenting for back pain + weakness x 5 days. Evaluation is with grossly unremarkable CBC + CMP with exception of elevated glucose. MRI of the lumbar spine does suggest muscle spasm, retrolisthesis, and degenerative changes. Admission for intractable back pain. 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 Ongoing pain since September, worsening weakness. Does feel that his knees are weak causing him to stumble, uses walker at times. CBC/CMP stable. Lumbar spine MRI: relative straightening of lumbar curvature, denoting spasm of paravertebral muscles. 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 no significant interval changes compared to previous MRI (12/2024) Ortho cc: recommending following up w/ pain management for injection. Is surgical candidate but would require lifestyle modifications including tighter control on BG + weight loss prior to surgery. Touched base w/ pain management 05/02 --> recommending keeping injection as scheduled. s/p IV Solu-medrol 40mg BID ---> transition to prednisone taper on dc starting 05/04. pt would prefer no narcotics as he is prone to randomized drug screening for work --> continue Tylenol/Ibuprofen prn. PT/OT consulted, recommending rehab on discharge. ---> discussed w/ pt & he declined, opting to return home. #Tachycardic No source of infection, without chest pain or palpitations. History CAD, HF. No SOB. Ranging ~ 90s-110s. ? related to pain Labs overall unremarkable; TSH WNL EKG normal sinus rhythm w/ occasional PVCs; CXR negative #T2DM H/o T2DM. At home regimen includes glimepiride, metformin, Ozempic weekly, and glargine 30U am. - continue on discharge. Glucose on arrival 228; Most recent A1c updated 05/03 w/ improvement to @ 10.7% #HTN- Amlodipine, carvedilol, HCTZ, lisinopril - continue #CAD- ASA - continue Discharged home 05/03. Admission HPI Per Admitting Provider 60-year-old male PMHx HTN, fatty liver, CAD, HFimpEF, T2DM, and lumbar stenosis presenting for back pain + weakness x 5 days. Reports history of herniated discs in the past. Patient reports that since September 2024 he has had worsening pain in his lower back, mainly radiating to the right side but occasionally just across his entire back. 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 He reports that he knows that his discs are rubbing on each other per report. He states that he feels his knees cannot hold him up and that this is been going on "a while." He occasionally will have falls because he feels that he is legs are giving out on him. He does use a walker on occasion and attempts to try to hold himself up. 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 He also has had difficulties over the past 7 to 8 days with constipation, stating he has not had normal bowel movement without any days. At present, his pain is located on the right side, described as sharp and rated a 5-6 out of 10 on the pain scale. It is managed well with Tylenol. Without numbness or tingling, no saddle anesthesia. Denies chest pain, palpitations, SOB, abdominal pain, N/V/D, fever/chills, URI symptoms, LUTS, or syncope. Patient follows with pain management, scheduled to have injections in his back in approximately 1 week. Also has been seen by Dr. Guan with orthopedics in the past. 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 ED evaluation reveals grossly WNL CBC; CMP glucose 228, otherwise unremarkable; lumbar spine MRI straightening lumbar curvature (spasm), mild retrolisthesis L5, spondylotic degenerative changes in spinal canal/foraminal stenosis, no significant change from prior MRI. Please see Dr. Garcia's attestation for adjustments/additions to treatment plan. Discharge Exam General: NAD, VS: BP 165/92; P86; R18; T36.6C Resp: normal respiratory effort Extremities: Moves all extremities, no edema Neuro: A&O x3 Skin: intact, no lesions noted Discharge Plan Discharge Items Patient Disposition: Home - Self-Care Reason For Visit: INTRACT. BACK PAIN Discharge Diagnosis: Back pain Condition on Discharge: Fair Activity: Resume your previous activity Non-emergency contact: Primary Care Provider and Pain Management Call non-emergency contact if: you have any medication questions, your pain is not controlled and your pain is worsening Follow-up/Referrals: Marcelino Kay CRNP [Primary Care Provider] - 05/15/25 8:20 am Chantal aTm PA-C [Physician Lens Grinding Machine Operator] - Don Guan DO [Surgeon] - Diet: Carb Consistent or DM2 Addtl Attending Provider Instructions: Mr. Martinez, You were recently hospitalized for back pain. Your MRI that you had done of your lumbar spine was found to be unchanged from previous scans. Please follow up with pain management next week for your injection. Medications: Your medication list has been reviewed and reconciled upon discharge to ensure accuracy and continuity of care. An updated list of all your medications is included with your hospital discharge paperwork. Please review this list closely, and make note of any changes. Please take the prednisone taper as prescribed starting 15 in the morning. Take your medications as instructed; do not skip a dose of your medicines. Make sure all of your doctors know every medicine you are taking (including extb-nta-evlkllw medicines, vitamins, and supplements). Call your primary care provider before taking any new medicines (including over- the-counter medicines, vitamins, and supplements), because some of these may interact with your current medications, or may make your symptoms worse. Tell your primary care provider if you cannot afford your medications. Activity: You can do normal everyday activities as your body allows. Take rest breaks if you feel tired. Do not overexert. Stop activity if you have pain, shortness of breath or feel dizzy. Follow-up appointments: Make an appointment with your primary care physician within one week of discharge. A copy of this summary will be sent to them. Every time you see your primary care physician, or any other doctor, bring your medication list, and a list of questions. Please follow up with Dr. Guan on an outpatient basis to further discuss treatment options. His office phone number is above if you should have questions or concerns. CONTACT YOUR PRIMARY CARE PROVIDER if you experience any of the following: Shortness of breath or difficulty breathing Fevers or chills Feeling tired with normal activity or experiencing dizziness or fainting Difficulty following your treatment plan, or difficulty taking medications CALL 911 OR GO TO THE EMERGENCY DEPARTMENT if you experience any of the following: Severe abdominal pain or nausea/vomiting Severe chest pain, or chest pain that radiates (moves) to your jaw or arm Sudden, severe shortness of breath or difficulty breathing Thank you for allowing us to participate in your care. Pending Studies at Discharge: No Stand-Alone Forms: My [facility], Smoking Cessation Medications and DC Order Prescriptions: New prednisone 10 mg tablet 10 mg PO DIRECTED Qty: 30 0RF Rx Instructions: Please take 4 tabs by mouth for 3 days followed by 3 tabs by mouth for 3 days followed by 2 tabs by mouth for 3 days followed by 1 tab by mouth for 3 days. Continued carvedilol 25 mg tablet 37.5 mg PO BID Qty: 270 3RF lisinopril 20 mg tablet 20 mg PO QAM Qty: 90 3RF glimepiride 4 mg tablet 4 mg PO BID Qty: 180 3RF Rx Instructions: Take 1 tablet before breakfast and 1 tablet before supper. doxycycline hyclate 100 mg tablet 100 mg PO BID 20 Days Qty: 40 1RF hydrochlorothiazide 12.5 mg tablet 12.5 mg PO DAILY Qty: 90 2RF metformin 500 mg tablet extended release 24 hr 1,000 mg PO BID Qty: 360 3RF Rx Instructions: Take 2 tablets with breakfast and supper meloxicam 15 mg tablet 15 mg PO DAILY Qty: 90 1RF insulin glargine [Lantus Solostar U-100 Insulin] 100 unit/mL (3 mL) insulin pen 30 unit subcut QAM MDD 50 Qty: 15 3RF Rx Instructions: Inject 30 units once daily coenzyme Q10 [Co Q-10] 100 mg capsule 100 mg PO DAILY amlodipine 5 mg tablet 5 mg PO DAILY Qty: 90 3RF aspirin [Ecotrin Low Strength] 81 mg Tablet,Delayed Release (Dr/Ec) 81 mg PO QAM Qty: 30 0RF [facility] 50 mg-15 unit- 4.5 mg-2.5 mg Tablet,Chewable 1 tab PO DAILY Ozempic 0.25 mg or 0.5 mg (2 mg/3 mL) pen injector 0.25 mg subcut WK Rx Instructions: SUNDAYS 0.25 mg subcutaneously once every 7 days at any time of day. After 4 weeks increase to 0.5 mg subcutaneously once weekly. No Action (DME) pen needle, diabetic [Comfort EZ Pen [place]] 31 gauge x 1/4" needle See Rx Instructions .Route Qty: 100 3RF Rx Instructions: Inject once daily Discharge Orders: Discharge Order (Routine); Ordered 05/03/25 Ordered By: Mamta Tao Admission Data Admit Date/Time: 05/02/25 03:25 Attending Provider: John Billings Admit Provider: Shakir Garcia Primary Care Provider: Marcelino Kay Other Providers: Don Guan; Shakir Garcia Other Interventions: Discharge Summary Assessment (RN) Last Done: 05/03/25 12:02 Hospital Stay Data Consultations 05/02/25 02:08 Consult Orthopedic Spine Surgery Routine 05/02/25 02:41 ED Decision to Admit Stat Diagnostic Imagining Performed 05/01/25 23:35 MRI Lumbar Spine [MR lumbar spine wo con] Stat Pending Results Patient Have Any Pending Studies at Discharge: No Discharge Instructions Given to Patient (Per Discharging Provider) Mr. Martinez, Forrest were recently hospitalized for back pain. Your MRI that you had done of your lumbar spine was found to be unchanged from previous scans. Please follow up with pain management next week for your injection. Medications: Your medication list has been reviewed and reconciled upon discharge to ensure accuracy and continuity of care. An updated list of all your medications is included with your hospital discharge paperwork. Please review this list closely, and make note of any changes. Please take the prednisone taper as prescribed starting 15 in the morning. Take your medications as instructed; do not skip a dose of your medicines. Make sure all of your doctors know every medicine you are taking (including dwfb-oqp-[id number] medicines, vitamins, and supplements). Call your primary care provider before taking any new medicines (including over- the-counter medicines, vitamins, and supplements), because some of these may interact with your current medications, or may make your symptoms worse. Tell your primary care provider if you cannot afford your medications. Activity: You can do normal everyday activities as your body allows. Take rest breaks if you feel tired. Do not overexert. Stop activity if you have pain, shortness of breath or feel dizzy. Follow-up appointments: Make an appointment with your primary care physician within one week of discharge. A copy of this summary will be sent to them. Every time you see your primary care physician, or any other doctor, bring your medication list, and a list of questions. Please follow up with Dr. Guan on an outpatient basis to further discuss treatment options. His office phone number is above if you should have questions or concerns. CONTACT YOUR PRIMARY CARE PROVIDER if you experience any of the following: Shortness of breath or difficulty breathing Fevers or chills Feeling tired with normal activity or experiencing dizziness or fainting Difficulty following your treatment plan, or difficulty taking medications CALL 911 OR GO TO THE EMERGENCY DEPARTMENT if you experience any of the following: Severe abdominal pain or nausea/vomiting Severe chest pain, or chest pain that radiates (moves) to your jaw or arm Sudden, severe shortness of breath or difficulty breathing Thank you for allowing us to participate in your care. Supervising Physician Co-Signing Physician Notes The patient was not seen by me. The chart was reviewed. Case discussed with SONIA Rivera. Agree with assessment and plan Total Time Total Time Spent Total Time Spent (In Minutes): 40 Total Time Includes: Examination of the Patient, Discharge Planning and Medication Reconciliation Coding Level of Care Code 70913 INP/OBS DISCH >30 MIN Diagnoses Intractable back pain M54.9 Lumbar stenosis M48.061 Tachycardia R00.0 Type 2 diabetes mellitus E11.9
[2025-05-03 12:04] VITALS: BP 148/93
== END 2025-05-03 13:40 | disposition home or self-care (01) ==
LOC: ED 22:36 → 2W 22:36 → SUATTDRO 05-02 03:25 → 2W 05-02 04:32